=== PATIENT | female | born 1960 | race Caucasian/White ===

== ENCOUNTER 2020-08-27 08:57 | Outpatient (REF) | payer MEDICARE, SELFPAY ==
[2020-08-27 11:22] LABS: MANUAL DIFF FLAG NO
[2020-08-27 11:43] LABS: Basophils Percent Auto 0.8 % (0-2); Eosinophils Absolute Auto 0.1 X10*3/uL (0.0-0.4); Eosinophils Percent Auto 1.7 % (0-4); Hematocrit 43.4 % (37-47); Hemoglobin 13.6 g/dl (12.0-16.0); Imm Gran Abs Auto 0.02 X10*3/uL (0.00-0.03); Imm Gran Pct Auto 0.4 % (0.0-0.4); Lymphocytes Percent Auto 57.7 % (20-40); Mean Corpuscular HGB Conc 31.3 g/dl (31.0-35.0); Mean Corpuscular Hemoglobin 29.2 pg (27.0-33.0); Mean Corpuscular Volume 93.3 fL (80-98); Mean Platelet Volume 10.3 fL (9.4-12.3); Monocytes Absolute Auto 0.7 X10*3/uL (0.1-1.2); Monocytes Percent Auto 13.1 % (2-11); Neutrophils Absolute Auto 1.4 X10*3/uL (2.0-8.3); Neutrophils Percent Auto 26.3 % (45-73); Platelet Count 324 X10*3/uL (160-400); Red Blood Count 4.65 X10*6/uL (4.20-5.50); Red Cell Distribution Width 14.2 % (11.0-16.0); White Blood Count 5.3 X10*3/uL (4.8-10.8)
[2020-08-27 12:08] LABS: TSH reflex Free T4 1.43 mIU/mL (0.32-4.0)
== END 2020-08-27 08:58 | disposition home or self-care (01) ==
LOC: HO.HMGCLDS 08:57
PROVIDERS: PCP Internal Medicine; Visit Provider Internal Medicine
DX: N95.0 Postmenopausal bleeding (principal)
CPT/HCPCS: 36415; 84443; 85025

== ENCOUNTER 2020-08-29 08:29 | Outpatient (REF) | payer MEDICARE, SELFPAY | END 2020-08-29 08:30 | disposition home or self-care (01) | LOC: HO.LAB 08:29 | PROVIDERS: PCP Internal Medicine; Referring Provider Internal Medicine; Visit Provider Obstetrics & Gynecology | DX: N95.0 Postmenopausal bleeding (principal) | CPT/HCPCS: 88305; 99212 ==

== ENCOUNTER → 2020-09-12 11:19 | Outpatient (BNVA) | payer MEDICARE, SELFPAY | PROVIDERS: PCP Internal Medicine; Referring Provider Internal Medicine; Visit Provider Obstetrics & Gynecology | DX: N95.0 Postmenopausal bleeding (principal); Z98.890 Other specified postprocedural states | CPT/HCPCS: Q3014 ==

== ENCOUNTER 2021-06-25 11:54 | Emergency (ER) | payer MEDICARE, SELFPAY ==
--- NOTE | ~2021-06-25 | XR_ITS ---
EXAMINATION: XR KNEE, RIGHT CLINICAL INFORMATION: Injury with pain COMPARISON: November 18, 2018 TECHNIQUE: Four views of the right knee. FINDINGS: There is no evidence of acute fracture or dislocation of the right knee. There is a small right knee effusion. The right knee joint spaces are maintained. There is minor marginal spurring seen about the medial lateral joint space compartments. There is spurring seen at the patellofemoral joint. There is some edema seen about the inferior aspect of the patella tendon. XR/XR knee RT 3V IMPRESSION: Mild degenerative change of the right knee as described. Small right knee effusion. Edema about the inferior aspect of the patella tendon.
[2021-06-25 12:05] VITALS: BP 168/95; PULSE 61; RESP 16; TEMP 36.3; O2SAT 98; BMI 50.0
--- NOTE | 2021-06-25 13:28 | ED.LOWEXIN ---
HPI - Extremity Injury (Lower) General Chief Complaint: Extremity Injury, Lower Stated Complaint: rt knee injury Time Seen by Provider: 06/25/21 13:28 History of Present Illness HPI Narrative: Patient complains of right knee pain after twisting it when she slipped on a wet floor 2 days ago, no other injury, no numbness weakness or tingling no head injury no neck pain no back pain Related Data Home Medications Medication Instructions Recorded Confirmed bupropion HCl 300 mg 24 hr tablet, 300 mg PO DAILY 08/27/20 10/03/20 extended release clonidine HCl 0.1 mg tablet 0 mg PO 08/27/20 10/03/20 escitalopram oxalate 20 mg tablet 20 mg PO DAILY 08/27/20 10/03/20 flu vac [id number] 36mos up(PF) ml IM 10/03/20 10/03/20 Previous Rx's Medication Instructions Recorded cetirizine 10 mg tablet 10 mg PO BEDTIME PRN #30 tab 04/16/21 Allergies Allergy/AdvReac Type Severity Reaction Status Date / Time latex [LATEX] Allergy Mild RASH Verified 09/12/20 11:19 Review of Systems Review of Systems: Positive for right knee pain Negatives are no fever no chills no dizziness no fainting no feeling faint no headache no head injury no loss of consciousness no neck pain no numbness weakness or tingling no back pain no changes to bowel or bladder and no chest pain no shortness of breath Yes all other systems are reviewed and are negative PMFSH Past Medical History Source: obtained from family Medical History (Updated 06/25/21 @ 14:53 by KASANDRA No) Bile salt-induced diarrhea Depression Hypertrophic toenail IBS (irritable bowel syndrome) Keratoconus of both eyes Lactose intolerance Morbid obesity Patellofemoral syndrome of right knee Postmenopausal bleeding Restless leg syndrome Seasonal allergies Tear of lateral meniscus of right knee Surgical History History of laparoscopic cholecystectomy History of tubal ligation Family History Family History Father Hodgkins disease Son No problems noted. Son No problems noted. Daughter No problems noted. Social History Social History Alcohol intake: current Advance Directives: Yes Advance Directives Information Provided: No Advance Directives on File: No Physical Exam Vital Signs: Vital Signs: Last Vital Signs Temp 97.4 F 06/25/21 12:05 Pulse 61 06/25/21 12:05 Resp 16 06/25/21 12:05 BP 168/95 H 06/25/21 12:05 Pulse Ox 98 06/25/21 12:05 Body Mass Index 50.0 General appearance no acute distress Head is normocephalic atraumatic Neck is supple nontender Respiratory no distress The back full range of motion The extremities the right knee is tender with mild swelling the tenderness is below the patella and along the joint line, there is no obvious effusion, patient can do a straight leg lift with no evidence of quadriceps or patellar tendon rupture, there is pain with flexion but the knee does extend to 180 and flexes to about 90 with discomfort, skin is normal there is no calf tenderness or swelling, neurovascular intact distal Other extremities normal Course Course Course Narrative: Right knee x-ray did show some arthritis and a very small effusion Patient can ambulate with a limp comfortably Patient is referred to orthopedist for follow-up and is comfortable and is discharged Discharge Plan Discharge Clinical Impression: Right knee sprain Patient Disposition: Home, Self-Care Additional Instructions: No broken bone seen on x-ray, there was some evidence of arthritis Follow with orthopedist for further evaluation Return to the ER any time any worse condition or any concerns You can use Tylenol or Motrin available [id number] as needed Prescriptions: No Action cetirizine 10 mg tablet 10 mg PO BEDTIME PRN (Reason: for allergies) Qty: 30 RF: 3 Afluria Qd (3yr up)(PF) 60 mcg (15 mcg x 4)/0.5 mL syringe IM RF: 0 clonidine HCl 0.1 mg tablet 0 mg PO RF: 0 bupropion HCl 300 mg tablet extended release 24 hr 300 mg PO DAILY RF: 0 escitalopram oxalate 20 mg tablet 20 mg PO DAILY RF: 0 Referrals: Steve Saldana MD [Physician] - 2 days (Right knee sprain) Interventions: ED Discharge Assessment Last Done: 06/25/21 15:02 Discharge Date/Time: 06/25/21 15:04
== END 2021-06-25 15:04 | disposition home or self-care (01) ==
PROVIDERS: Emergency Provider Emergency Medicine; PCP Internal Medicine
DX: S83.91XA Sprain of unspecified site of right knee, initial encounter (principal); W01.0XXA Fall on same level from slipping, tripping and stumbling without subsequent striking against object, initial encounter; Y93.9 Activity, unspecified; Y92.9 Unspecified place or not applicable; Y99.9 Unspecified external cause status
CPT/HCPCS: 73562; 99283

== ENCOUNTER 2021-08-04 12:53 | Outpatient (REF) | payer MEDICARE, SELFPAY ==
--- NOTE | ~2021-08-04 | MM_ITS ---
EXAMINATION: MM SCREENING DIGITAL BREAST TOMOSYNTHESIS, BILATERAL CLINICAL INFORMATION: Screening. Asymptomatic. The lifetime risk of breast cancer based on the Tyrer-Cuzick Model is 5%. COMPARISON: Mammography: 04/29/2020, 04/26/2018, 03/31/2017 TECHNIQUE: Digital breast tomosynthesis is performed in both the craniocaudal and mediolateral oblique views along with computer-aided detection (CAD). Synthesized 2D images are generated from the tomosynthesis. FINDINGS: There are scattered areas of fibroglandular density (ACR BI-RADS breast composition Category b). The left breast has a 5 mm circumscribed nodule anterior 3:30 o'clock position within 4 cm of the nipple, representing change from prior exams, possibly a cyst. Patient will be recalled for additional targeted ultrasound. The breasts otherwise show no significant mass or architectural abnormality. There are some calcifications in the anterior breasts similar to prior studies, greater on right. Some fine dermal calcifications versus deodorant artifact overlies right axilla. The axillary nodes are unremarkable. Skin contours are smooth. MM/MM tomosynthesis screening BI IMPRESSION: 1. Left: Smooth 5 mm nodule anterior 3:30 o'clock position, possibly a cyst. 2. Right: No mammographic evidence of malignancy. ASSESSMENT: BI-RADS 0: Incomplete - Need Additional Imaging Evaluation RECOMMENDATION: 1. Targeted ultrasound left breast. 2. Radiology department staff will contact the patient for additional imaging. This patient's information was entered into a reminder system with a target due date for their next mammogram.
== END 2021-08-04 12:54 | disposition home or self-care (01) ==
LOC: HO.MAMMO 12:53
PROVIDERS: Visit Provider Internal Medicine
DX: Z12.31 Encounter for screening mammogram for malignant neoplasm of breast (principal)
CPT/HCPCS: 77063; 77067

== ENCOUNTER → 2021-08-18 12:24 | Outpatient (BNVA) | payer MEDICARE, SELFPAY | PROVIDERS: PCP Internal Medicine; Visit Provider Orthopaedic Surgery | DX: M17.11 Unilateral primary osteoarthritis, right knee (principal) | CPT/HCPCS: 20610; 99212; J1100 ==

== ENCOUNTER 2021-09-03 12:17 | Outpatient (REF) | payer MEDICARE, SELFPAY ==
--- NOTE | ~2021-09-03 | US_ITS ---
EXAMINATION: US BREAST LIMITED, LEFT CLINICAL INFORMATION: Density lateral aspect left breast. COMPARISON: 08/04/2021 and 04/29/2020 TECHNIQUE: Ultrasound of the breast is performed with real-time adrian-scale imaging and color Doppler. FINDINGS: About the 3 o'clock position, 4 cm from nipple, of the left breast, there is noted to be an anechoic 4 mm circumscribed cyst without internal vascularity. No suspicious solid mass or region of abnormal distal sound shadowing appreciated. No edema within the soft tissue planes is identified. Results are discussed with the patient at time of visit. US/US breast LT limited IMPRESSION: Left breast density corresponds to a simple cyst. ASSESSMENT: BI-RADS 2: Benign. RECOMMENDATION: Routine annual mammography screening due in 12 months. This patient's information was entered into a reminder system with a target due date for their next mammogram.
== END 2021-09-03 12:18 | disposition home or self-care (01) ==
LOC: HO.MAMMO 12:17
PROVIDERS: Visit Provider Internal Medicine
DX: R92.2 Inconclusive mammogram (principal); N63.25 Unspecified lump in the left breast, overlapping quadrants
CPT/HCPCS: 76642

== ENCOUNTER 2021-09-10 11:46 | Outpatient (REF) | payer MEDICARE, SELFPAY ==
[2021-09-10 13:50] LABS: MANUAL DIFF FLAG NO
[2021-09-10 14:03] LABS: Basophils Absolute Auto 0.1 X10*3/uL (0.0-0.2); Eosinophils Absolute Auto 0.1 X10*3/uL (0.0-0.4); Eosinophils Percent Auto 2.6 % (0-4); Hematocrit 43.5 % (37.0-47.0); Imm Gran Abs Auto 0.01 X10*3/uL (0.00-0.03); Imm Gran Pct Auto 0.2 % (0.0-0.4); Lymphocytes Absolute Auto 2.6 X10*3/uL (1.2-4.9); Lymphocytes Percent Auto 50.7 % (20-40); Mean Corpuscular HGB Conc 32.2 g/dl (31.0-35.0); Mean Corpuscular Hemoglobin 30.4 pg (27.0-33.0); Mean Corpuscular Volume 94.4 fL (80.0-98.0); Mean Platelet Volume 10.6 fL (9.4-12.3); Monocytes Absolute Auto 0.5 X10*3/uL (0.1-1.2); Monocytes Percent Auto 10.1 % (2-11); Neutrophils Absolute Auto 1.8 x10*3/uL (2.0-8.3); Neutrophils Percent Auto 35.4 % (45-73); Platelet Count 304 X10*3/uL (160-400); Red Blood Count 4.61 X10*6/uL (4.20-5.50); Red Cell Distribution Width 13.1 % (11.0-16.0); White Blood Count 5.1 X10*3/uL (4.8-10.8)
[2021-09-10 14:33] LABS: Alanine Aminotransferase 18 U/L (0-31); Anion Gap 11 (12-20); Aspartate Amino Transferase 14 U/L (5-31); Blood Urea Nitrogen 13 mg/dL (9-16); Calcium 9.1 mg/dL (8.4-10.2); Carbon Dioxide 26 mmol/L (22-29); Chloride 107 mmol/L (96-108); Cholesterol 175 mg/dL; Estimated Glomerular Filt Rate > 60; Glucose Fasting 107 mg/dL (60-99); HDL Cholesterol 50 mg/dL; LDL Cholesterol Calculated 102 mg/dl; Potassium 4.4 mmol/L (3.3-5.1); Sodium 140 mmol/L (135-145); Triglycerides 117 mg/dL
[2021-09-10 14:41] LABS: TSH reflex Free T4 0.71 uIU/mL (0.32-4.0)
== END 2021-09-10 11:47 | disposition home or self-care (01) ==
LOC: HO.HMGCLDS 11:46
PROVIDERS: PCP Internal Medicine; Visit Provider Internal Medicine
DX: Z01.84 Encounter for antibody response examination (principal); E66.01 Morbid (severe) obesity due to excess calories; I10 Essential (primary) hypertension
CPT/HCPCS: 36415; 80048; 80061; 82306; 84443; 84450; 84460; 85025; 86787

== ENCOUNTER → 2021-12-03 14:09 | Outpatient (BNVA) | payer MEDICARE, SELFPAY | PROVIDERS: PCP Internal Medicine; Referring Provider Internal Medicine; Visit Provider Internal Medicine | DX: R00.1 Bradycardia, unspecified (principal); I10 Essential (primary) hypertension; E66.01 Morbid (severe) obesity due to excess calories; Z68.42 Body mass index [BMI] 45.0-49.9, adult | CPT/HCPCS: 99202 ==

== ENCOUNTER → 2021-12-25 20:44 | Outpatient (REF) | payer MEDICARE, SELFPAY | LOC: HO.SL 20:44 | PROVIDERS: PCP Internal Medicine; Visit Provider Internal Medicine | DX: G47.10 Hypersomnia, unspecified (principal); R00.1 Bradycardia, unspecified; E66.01 Morbid (severe) obesity due to excess calories | CPT/HCPCS: 95810 ==

== ENCOUNTER → 2021-12-26 06:45 | Outpatient (REF) | payer MEDICARE, SELFPAY ==
--- NOTE | 2021-12-26 06:48 | HM_ITS ---
Conclusion: 1. Patient was monitored for period of 3 days and 4 hours 2. Baseline was normal sinus rhythm with average heart of 64 beats per minute 3. No significant pauses noted but lowest heart rate noted to be 39 beats per minute during sleep hours 4. Very rare PACs and PVCs noted 5. Three short episodes of supraventricular tachycardia longest lasting 14 beats 6. No patient reported events MTDD
== END ==
LOC: HO.CARD 06:45
PROVIDERS: PCP Internal Medicine; Visit Provider Internal Medicine
DX: R00.1 Bradycardia, unspecified (principal)
CPT/HCPCS: 93242

== ENCOUNTER → 2022-02-03 14:10 | Outpatient (BNVA) | payer MEDICARE, OTHER, SELFPAY | PROVIDERS: PCP Internal Medicine; Visit Provider Internal Medicine | DX: G47.33 Obstructive sleep apnea (adult) (pediatric) (principal); G25.81 Restless legs syndrome; E66.01 Morbid (severe) obesity due to excess calories; Z68.42 Body mass index [BMI] 45.0-49.9, adult | CPT/HCPCS: 99202 ==

== ENCOUNTER 2022-02-13 12:39 | Outpatient (REF) | payer MEDICARE, OTHER, SELFPAY ==
[2022-02-13 14:00] LABS: Estimated Average Glucose 111 mg/dL; Hemoglobin A1c % 5.5 %
[2022-02-13 14:11] LABS: Alanine Aminotransferase 16 U/L (0-31); Anion Gap 10 (12-20); Aspartate Amino Transferase 16 U/L (5-31); Blood Urea Nitrogen 14 mg/dL (9-16); Calcium 9.8 mg/dL (8.4-10.2); Carbon Dioxide 29 mmol/L (22-29); Chloride 106 mmol/L (96-108); Cholesterol 192 mg/dL; Estimated Glomerular Filt Rate > 60; Glucose Fasting 97 mg/dL (60-99); HDL Cholesterol 49 mg/dL; LDL Cholesterol Calculated 121 mg/dl; Potassium 4.9 mmol/L (3.3-5.1); Sodium 140 mmol/L (135-145); Triglycerides 110 mg/dL
== END 2022-02-13 12:40 | disposition home or self-care (01) ==
LOC: HO.HMGCLDS 12:39
PROVIDERS: PCP Internal Medicine; Visit Provider Internal Medicine
DX: E55.9 Vitamin D deficiency, unspecified (principal); E66.01 Morbid (severe) obesity due to excess calories; R73.01 Impaired fasting glucose; I10 Essential (primary) hypertension
CPT/HCPCS: 36415; 80048; 80061; 82306; 83036; 84450; 84460

== ENCOUNTER → 2022-02-19 09:45 | Outpatient (BNVA) | payer MEDICARE, OTHER, SELFPAY | PROVIDERS: PCP Internal Medicine; Visit Provider Dietitian, Registered | DX: E66.01 Morbid (severe) obesity due to excess calories (principal); Z68.42 Body mass index [BMI] 45.0-49.9, adult | CPT/HCPCS: 97802 ==

== ENCOUNTER → 2022-03-17 12:54 | Outpatient (BNVA) | payer MEDICARE, OTHER, SELFPAY | PROVIDERS: PCP Internal Medicine; Referring Provider Internal Medicine; Visit Provider Nurse Practitioner Family | DX: R00.1 Bradycardia, unspecified (principal); G47.33 Obstructive sleep apnea (adult) (pediatric); E66.01 Morbid (severe) obesity due to excess calories; Z68.42 Body mass index [BMI] 45.0-49.9, adult; I10 Essential (primary) hypertension | CPT/HCPCS: 99212 ==

== ENCOUNTER → 2022-04-01 11:13 | Outpatient (BNVA) | payer MEDICARE, OTHER, SELFPAY | PROVIDERS: PCP Internal Medicine; Visit Provider Dietitian, Registered | DX: E66.01 Morbid (severe) obesity due to excess calories (principal); Z68.42 Body mass index [BMI] 45.0-49.9, adult | CPT/HCPCS: 97803 ==

== ENCOUNTER 2022-04-14 12:53 | Outpatient (REF) | payer MEDICARE, OTHER, SELFPAY ==
--- NOTE | ~2022-04-14 | CT_ITS ---
EXAMINATION: CT SINUS WITHOUT CONTRAST CLINICAL INFORMATION: Anosmia, sinonasal polyps. COMPARISON: None. TECHNIQUE: Axial 2 mm thin and reformatted 2 mm thin sagittal and coronal images of sinuses were obtained. This CT examination was performed using dose optimization techniques as appropriate, variously including the following: *Automated exposure control *Adjustment of mA and/or kV according to patient size (this includes techniques or standardized protocols for targeted exams where dose is matched to indication/reason for exam; i.e. extremities or head) *Use of iterative reconstruction technique DLP: 96 mGy-cm. FINDINGS: FRONTAL SINUSES AND DRAINAGE PATHWAYS: There is a small polyp or retention cyst right frontal sinus. The rest of the paranasal sinuses are well aerated. MAXILLARY SINUSES AND DRAINAGE PATHWAYS: Normal. The infundibula are patent. ETHMOID SINUSES: Normal. The ethmoid roofs are symmetric, with olfactory fossa depth of 0.7 on the right and 0.6 on the left. SPHENOID SINUSES AND DRAINAGE PATHWAYS: Normal. The sphenoid ostia are patent. The carotid canals are covered by bone. NASAL CAVITY/NASOPHARYNX: The nasal cavity is clear. There is mild nasal septal deviation/spurring to the right. There is nikki bullosa of the left middle turbinate. ADDITIONAL RELEVANT FINDINGS: No periapical disease is seen. The TMJs articulate normally. The orbits and skull base soft tissues are unremarkable. The middle ear cavities and mastoid air cells are clear. Limited evaluation demonstrates no acute intracranial findings. CT/CT sinus wo con IMPRESSION: Small polyp or retention cyst right maxillary sinus. The rest of the paranasal sinuses are clear. The drainage pathways are widely patent. Mild deviation of nasal septum to the right with small bony spur and nikki bullosa left middle turbinate.
== END 2022-04-14 12:54 | disposition home or self-care (01) ==
LOC: HO.CT 12:53
PROVIDERS: Visit Provider Otolaryngology
DX: R43.0 Anosmia (principal); J33.0 Polyp of nasal cavity
CPT/HCPCS: 70486

== ENCOUNTER → 2022-05-07 14:40 | Outpatient (BNVA) | payer MEDICARE, OTHER, SELFPAY | PROVIDERS: PCP Internal Medicine; Visit Provider Internal Medicine | DX: G47.33 Obstructive sleep apnea (adult) (pediatric) (principal); E66.01 Morbid (severe) obesity due to excess calories; Z68.42 Body mass index [BMI] 45.0-49.9, adult | CPT/HCPCS: 99212 ==

== ENCOUNTER → 2022-06-03 10:26 | Outpatient (BNVA) | payer MEDICARE, OTHER, SELFPAY | PROVIDERS: PCP Internal Medicine; Visit Provider Dietitian, Registered | DX: E66.01 Morbid (severe) obesity due to excess calories (principal); Z68.41 Body mass index [BMI] 40.0-44.9, adult; Z71.3 Dietary counseling and surveillance | CPT/HCPCS: 97803 ==

== ENCOUNTER → 2022-07-22 12:22 | Outpatient (BNVA) | payer MEDICARE, OTHER, SELFPAY | PROVIDERS: PCP Internal Medicine; Referring Provider Internal Medicine; Visit Provider Internal Medicine | DX: R00.1 Bradycardia, unspecified (principal); I10 Essential (primary) hypertension; G47.33 Obstructive sleep apnea (adult) (pediatric); E66.01 Morbid (severe) obesity due to excess calories; Z68.41 Body mass index [BMI] 40.0-44.9, adult | CPT/HCPCS: 99212 ==

== ENCOUNTER → 2022-07-27 15:52 | Outpatient (REF) | payer MEDICARE, OTHER, SELFPAY ==
--- NOTE | 2022-07-27 15:57 | CA_ITS ---
Transthoracic Echocardiogram Patient (Last, First, Middle): Linda Fernandez M Gender: Female Date of : 1960 Age: 62 Procedure Date: 07/27/2022 Procedure Type: Transthoracic Echocardiogram Location: OP Height: 152.4 cm Weight: 98.43 kg BSA: 1.93 m2 Heart Rate: 51 bpm BP: 140 / 80 mmHg Placement Manager: LISA Sandoval MD: Jose Walker MD [employer] Technician: Kash Strauss MD Symptoms: G47.33 - Obstructive sleep apnea (adult) (pediatric) Study Quality: Adequate ECG Rhythm: Bradycardia Conclusions: - Normal study Findings Left Ventricle Normal left ventricular size, thickness, and systolic function. The visually estimated ejection fraction is between 55-60%. Spectral Doppler is indicative of a normal filling pattern. Right Ventricle Normal right ventricular cavity size and systolic function. Atria Both atria are normal in size. There is no evidence of interatrial shunt. Aortic Valve Normal aortic valve structure and function. There is no aortic valve stenosis. There is no aortic valve regurgitation. Mitral Valve Normal mitral valve structure and function. There is trace mitral valve regurgitation. There is no mitral valve stenosis. Pulmonic Valve The pulmonic valve is likely normal. Tricuspid Valve Normal tricuspid valve structure. There is trace tricuspid valve regurgitation. The right ventricular systolic pressure is normal. Normal right atrial pressure. There is no evidence of pulmonary hypertension. Great Vessels All visible segments of the aorta are normal in size. The pulmonary artery was not well visualized. Venous The inferior vena cava is normal in size and collapses greater than 50% with inspiration. Pericardium/Pleural There is no evidence of pericardial effusion. Prior Study Comparison No prior study available for comparison. Measurements 2D Linear Measurements IVSd: 0.95 0.6-0.9/0.6-1.0 cm LVIDd: 4.58 3.9-5.3/4.2-5.9 cm LVIDd Index: 2.37 2.4-3.2/2.2-3.1 cm/m2 LVIDs: 3.02 2.0-3.6 cm LVPWd: 0.99 0.7-1.1 cm LA Diam: 3.70 2.7-3.8/3.0-4.0 cm LAIDs Index: 1.92 1.5-2.3 cm/m2 LV Mass: 188.34 67-162/88-224 g LV Mass Index: 97.59 43-95/49-115 g/m2 LVOT Diam: 2.00 3.0+(-)1.3 cm 2D Systolic Function EF 4C: 57.20 >55% EF 2C: 53.20 >55% EF BiP: 56.80 >55% Mitral Valve MV Pk E: 0.88 MV PK A: 0.70 MV Decel Time: 198.00 E/A: 1.30 E'Lateral: 10.00 E'Medial: 8.27 E/E' Med: 10.70 E/E' Lat: 8.80 PHT: 58.00 MVA PHT: 3.79 Decel [place]: 4.45 Aortic Valve AoV Pk Brian: 1.20 AoV Mn Brian: 0.82 AoV VTI: 0.28 AoV Pk Grad: 6.00 Aov Mn Grad: 3.00 GEMINI Cont.VTI: 2.98 LVOT LVOT Pk Brian: 1.23 LVOT Mn Brian: 0.74 LVOT VTI: 0.27 LVOT Pk Grad: 6.00 LVOT Mn Grad: 3.00 LVOT Diam: 2.00 LVOT Area: 3.14 Diastolic Function MV Pk E: 0.88 MV Pk A: 0.70 E/A: 1.30 E'Medial: 8.27 E/E' Med: 10.70 E' Laterial: 10.00 E/E' Lat: 8.80 Right Ventricle TAPSE (mm): 22.60 TVS' Brian: 12.20 Tricuspid Valve TR Pk Brian: 1.84 TR Pk Grad: 14.00 RA Press: 3.00 RVSP: 17.00 Great Vessels Aorta Sinus of Valsalva: 3.40 2.0-3.5 cm Ao Asc: 2.90 2.1-3.4 cm Pulmonary Valve PV Pk Brian: 1.06 Peak PV Grad: 4.00 Updated in Other Vendor System with Status of Final Kash Strauss MD electronically signed on 07/27/2022 6:39:26 PM with status of Final
== END ==
LOC: HO.CARD 15:52
PROVIDERS: PCP Internal Medicine; Visit Provider Internal Medicine
DX: R00.1 Bradycardia, unspecified (principal); I10 Essential (primary) hypertension; E66.01 Morbid (severe) obesity due to excess calories; Z68.41 Body mass index [BMI] 40.0-44.9, adult; G47.33 Obstructive sleep apnea (adult) (pediatric)
CPT/HCPCS: 93306

== ENCOUNTER → 2022-08-06 10:55 | Outpatient (BNVA) | payer MEDICARE, OTHER, SELFPAY | PROVIDERS: PCP Internal Medicine; Visit Provider Dietitian, Registered | DX: E66.01 Morbid (severe) obesity due to excess calories (principal); Z68.41 Body mass index [BMI] 40.0-44.9, adult | CPT/HCPCS: 97802 ==

== ENCOUNTER → 2022-08-10 15:39 | Outpatient (BNVA) | payer MEDICARE, OTHER, SELFPAY | PROVIDERS: PCP Internal Medicine; Visit Provider Internal Medicine | DX: G47.33 Obstructive sleep apnea (adult) (pediatric) (principal); G25.81 Restless legs syndrome; E66.01 Morbid (severe) obesity due to excess calories; Z68.41 Body mass index [BMI] 40.0-44.9, adult; Z99.89 Dependence on other enabling machines and devices | CPT/HCPCS: 99212 ==

== ENCOUNTER 2022-10-28 13:11 | Outpatient (REF) | payer MEDICARE, OTHER, SELFPAY ==
--- NOTE | ~2022-10-28 | MM_ITS ---
EXAMINATION: MM SCREENING DIGITAL BREAST TOMOSYNTHESIS, BILATERAL CLINICAL INFORMATION: Screening. Asymptomatic. The lifetime risk of breast cancer based on the Tyrer-Cuzick Model is 5%. COMPARISON: Mammography: 08/04/2021, 04/29/2020, 04/26/2018; left breast ultrasound 09/03/2021 TECHNIQUE: Digital breast tomosynthesis is performed in both the craniocaudal and mediolateral oblique views along with computer-aided detection (CAD). Synthesized 2D images are generated from the tomosynthesis. FINDINGS: There are scattered areas of fibroglandular density (ACR BI-RADS breast composition Category b). There are no significant masses, abnormal calcifications, or other abnormalities. The known cyst anterior lower outer left breast is slightly increased in size, currently approximately 6 mm. Scattered regional calcifications anterior breast are stable. The axilla are unremarkable. No significant changes. MM/MM tomosynthesis screening BI IMPRESSION: No mammographic evidence of malignancy. ASSESSMENT: BI-RADS 2: Benign RECOMMENDATION: Routine annual mammography screening. This patient's information was entered into a reminder system with a target due date for their next mammogram.
== END 2022-10-28 13:12 | disposition home or self-care (01) ==
LOC: HO.MAMMO 13:11
PROVIDERS: PCP Internal Medicine; Visit Provider Internal Medicine
DX: Z12.31 Encounter for screening mammogram for malignant neoplasm of breast (principal)
CPT/HCPCS: 77063; 77067

== ENCOUNTER → 2022-11-04 14:59 | Outpatient (BNVA) | payer MEDICARE, OTHER, SELFPAY | PROVIDERS: PCP Internal Medicine; Visit Provider Internal Medicine | DX: G47.33 Obstructive sleep apnea (adult) (pediatric) (principal); E66.01 Morbid (severe) obesity due to excess calories; Z68.41 Body mass index [BMI] 40.0-44.9, adult; G25.81 Restless legs syndrome | CPT/HCPCS: 99212 ==

== ENCOUNTER → 2022-11-23 10:25 | Outpatient (BNVA) | payer MEDICARE, OTHER, SELFPAY | PROVIDERS: PCP Internal Medicine; Visit Provider Dietitian, Registered | DX: E66.01 Morbid (severe) obesity due to excess calories (principal); Z68.41 Body mass index [BMI] 40.0-44.9, adult | CPT/HCPCS: 97803 ==

== ENCOUNTER 2023-04-08 07:26 | Outpatient (REF) | payer MEDICARE, OTHER, SELFPAY ==
--- NOTE | ~2023-04-08 | XR_ITS ---
EXAMINATION: XR KNEE AP STANDING XR KNEE, RIGHT CLINICAL INFORMATION: Knee pain. COMPARISON: None available. TECHNIQUE: AP bilateral standing view of the knees was obtained. Three views of the right knee. FINDINGS: Examination demonstrates mild tricompartmental osteoarthritis of the right knee, most notably involving the patellofemoral and medial compartments, with joint space narrowing, sclerosis, and mild osteophyte formation. On the limited frontal view of the left knee, findings appear similar. No significant effusion is seen. No fracture is appreciated. No lytic or sclerotic bony lesion is identified. Soft tissues appear unremarkable. XR/XR knee standing BI IMPRESSION: Mild tricompartmental osteoarthritis of the right knee and probably the left knee, although only a frontal view of the left knee is submitted.
--- NOTE | ~2023-04-08 | XR_ITS ---
EXAMINATION: XR KNEE AP STANDING XR KNEE, RIGHT CLINICAL INFORMATION: Knee pain. COMPARISON: None available. TECHNIQUE: AP bilateral standing view of the knees was obtained. Three views of the right knee. FINDINGS: Examination demonstrates mild tricompartmental osteoarthritis of the right knee, most notably involving the patellofemoral and medial compartments, with joint space narrowing, sclerosis, and mild osteophyte formation. On the limited frontal view of the left knee, findings appear similar. No significant effusion is seen. No fracture is appreciated. No lytic or sclerotic bony lesion is identified. Soft tissues appear unremarkable. XR/XR knee RT 2V IMPRESSION: Mild tricompartmental osteoarthritis of the right knee and probably the left knee, although only a frontal view of the left knee is submitted.
== END 2023-04-08 07:27 | disposition home or self-care (01) ==
LOC: HO.HOSX 07:26
PROVIDERS: Visit Provider Orthopaedic Surgery
DX: M17.11 Unilateral primary osteoarthritis, right knee (principal); E66.01 Morbid (severe) obesity due to excess calories; Z68.41 Body mass index [BMI] 40.0-44.9, adult
CPT/HCPCS: 20610; 73560; 73565; 99212; J1100

== ENCOUNTER 2023-06-21 15:04 | Outpatient (AMB) | payer MEDICARE, OTHER, SELFPAY ==
[2023-06-21 15:13] VITALS: BP 130/80; PULSE 73; O2SAT 96; BMI 42.9
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
== END 2023-06-21 15:37 | disposition home or self-care (01) ==
PROVIDERS: PCP Internal Medicine; Visit Provider Internal Medicine
DX: E66.01 Morbid (severe) obesity due to excess calories (principal); Z68.42 Body mass index [BMI] 45.0-49.9, adult; G47.33 Obstructive sleep apnea (adult) (pediatric); G25.81 Restless legs syndrome
CPT/HCPCS: 99213

== ENCOUNTER → 2023-06-21 15:04 | Outpatient (BNVA) | payer MEDICARE, OTHER, SELFPAY | PROVIDERS: PCP Internal Medicine; Visit Provider Internal Medicine | DX: G47.33 Obstructive sleep apnea (adult) (pediatric) (principal); G25.81 Restless legs syndrome; E66.01 Morbid (severe) obesity due to excess calories; Z68.42 Body mass index [BMI] 45.0-49.9, adult | CPT/HCPCS: 99212 ==

== ENCOUNTER 2023-07-14 09:34 | Outpatient (AMB) | payer MEDICARE, OTHER, SELFPAY ==
--- NOTE | 2023-07-14 09:38 | A.OFFVIS_ITS ---
Intake Vital Signs 07/14/23 09:44 Height 5 ft 1 in Weight 227 lb BMI 42.9 Intake Visit Reasons: new prob- B/L hand/ finger pain Intake Note: Linda is a 62 year old right hand dominant female who presents today for a evaluation for her bilateral hand pain. No hx of treatment. Patient reports both of her thumbs locking every day. She states having pain and a tingling sensation on the base of both thumbs. Allergies latex [LATEX] Allergy (Mild, Verified 07/14/23 09:43) RASH Medication List - Last Reconciled 07/14/23 by Crista Vila MD bupropion HCl 300 mg PO DAILY cetirizine 10 mg PO BEDTIME PRN clonidine HCl 0.1 mg PO BEDTIME escitalopram oxalate 20 mg PO DAILY ropinirole 1 mg (2 x 0.5 mg) PO BEDTIME HPI HPI Comments History of Present Illness Details Patient self referred for hand pain on her thumbs. She says she thinks she has arthritis in her thumbs. It locks, pointing on base of thumb, bilateral. Can't hold things or drops things. Reports night time numbness and even during, on base of thumb, but denies numbness on other finger tips. Feels coldness on other fingers. Reports swelling. No associated with neck pain. Treatment done so far: NSAIDs - none yet Tried braces for CTS a while back. She thinks maybe she had an EMG. She mentions that in April, she possibly pulled right arm. Complaining of right shoulder pain and elbow pain. [facility] Medical History (Updated 07/14/23 @ 09:59 by Crista Vila MD) Carpal tunnel syndrome on both sides Restless legs syndrome CHAZ (obstructive sleep apnea) Sinus bradycardia Intermittent lightheadedness Vitamin D deficiency Essential hypertension Hypertrophic toenail Lactose intolerance Seasonal allergies Postmenopausal bleeding Tear of lateral meniscus of right knee Patellofemoral syndrome of right knee Morbid obesity IBS (irritable bowel syndrome) Bile salt-induced diarrhea Restless leg syndrome Depression Keratoconus of both eyes Surgical History History of tubal ligation History of laparoscopic cholecystectomy Family History Father Hodgkins disease Son No problems noted. Son No problems noted. Daughter No problems noted. Other Mental health disorder Social History Housing: House Alcohol intake: current Alcohol intake frequency: holidays/special occasions only Patient Tobacco Use Status: Never used Tobacco e-Cigarette/Vaping Use: Never Used Current occupational status: retired Cognitive needs: No Hearing needs: No Vision needs: No Review of Systems Const All systems reviewed & are unremarkable except as noted in HPI and below Physical Exam Vital Signs: BMI result Body Mass Index 42.9 Constitutional: Patient appears to be in no acute distress, well nourished and well developed. MSK: Inspection reveals appropriate head and neck positioning. Tenderness right upper trapezius. Nontender subacromial area. Cervical ROM was full. Spurling's sign negative. Full right shoulder range of motion but with pain. Hawkin's test is positive on right. Deferred empty can sign because of pain. No joint effusion noted. No deformity noted. No intrinsic hand weakness noted. No atrophy noted. Evangelist test negative bilateral. Tender bilateral CMC joints. Carpal compression test positive bilateral. Tinel sign negative. Tenderness on right lateral epicondyle and along the extensor common tendons. Strength is 5/5 in all muscle groups tested. No increased tone noted. Neurological: Neurologic examination of the upper and lower extremities was nonfocal with intact sensation, muscle stretch reflexes and without focal motor deficits . Kelly?s negative bilaterally. Results Reviewed Results Reviewed: I independently reviewed the results of the following: [ ] I reviewed records from the following: Orthopedic Assessment & Plan Assessment & Plan (1) Carpal tunnel syndrome on both sides: Code(s): G56.03 - Carpal tunnel syndrome, bilateral upper limbs (2) CMC arthritis: Code(s): M19.049 - Primary osteoarthritis, unspecified hand (3) Tennis elbow: Code(s): M77.10 - Lateral epicondylitis, unspecified elbow Qualifiers: Laterality: right Qualified Code(s): M77.11 - Lateral epicondylitis, right elbow (4) DJD of shoulder: Code(s): M19.019 - Primary osteoarthritis, unspecified shoulder Qualifiers: Osteoarthritis type: primary Laterality: right Qualified Code(s): M19.011 - Primary osteoarthritis, right shoulder Plan Patient is self-referred for hand/thumb pain. Exam suggestive of CMC arthritis. Lower suspicion for de Quervain tenosynovitis. Possible history of Carpal Tunnel Syndrome. We will send her for hand/wrist x-rays today. We will also send her for EMG. To wear wrist splints at night. Also complained of right shoulder pain. Was sent for a right shoulder x-ray today. Possible DJD. On exam, she has tenderness over lateral epicondyle, suggestive of tennis elbow. We will start her on counterforce brace to wear during the day. Assessment and plan discussed with patient, and patient was agreeable. All questions were answered thoroughly. Crista Vila MD, CARMINA Board Certified, [place] Board of Physical Medicine and Rehabilitation (ABPMR) Board Certified, [place] Board of Electrodiagnostic Medicine (ABEM) Orders: Orders NE electromyogram (EMG) Today G56.03 - Carpal tunnel syndrome, bilateral upper limbs NE nerve conduction velocity Today G56.03 - Carpal tunnel syndrome, bilateral upper limbs XR hand wrist RT Today M19.049 - Primary osteoarthritis, unspecified hand XR hand wrist LT Today M19.049 - Primary osteoarthritis, unspecified hand XR shoulder RT min 2V Today M19.019 - Primary osteoarthritis, unspecified shoulder Coding Level of Care Code New Pt Level 4 (36890) Diagnoses Carpal tunnel syndrome on both sides G56.03 CMC arthritis M19.049 Lateral epicondylitis of right elbow M77.11 Laterality: right Primary osteoarthritis of right shoulder M19.011 Osteoarthritis type: primary Laterality: right
[2023-07-14 09:44] VITALS: BMI 42.9
== END 2023-07-14 10:50 | disposition home or self-care (01) ==
PROVIDERS: PCP Internal Medicine; Visit Provider Physical Medicine & Rehabilitation
DX: G56.03 Carpal tunnel syndrome, bilateral upper limbs (principal); M19.041 Primary osteoarthritis, right hand; M77.11 Lateral epicondylitis, right elbow; M19.011 Primary osteoarthritis, right shoulder; M19.042 Primary osteoarthritis, left hand
CPT/HCPCS: 99204

== ENCOUNTER 2023-07-14 09:34 | Outpatient (REF) | payer MEDICARE, OTHER, SELFPAY ==
--- NOTE | ~2023-07-14 | XR_ITS ---
EXAMINATION: XR HAND/WRIST, RIGHT XR HAND/WRIST, LEFT CLINICAL INFORMATION: Osteoarthritis. COMPARISON: Right hand radiographs dated 05/03/2019 and report from bilateral hand radiographs dated 10/11/2012. TECHNIQUE: PA, oblique, and lateral views of the right and left hand/wrist. FINDINGS: RIGHT HAND/WRIST: Mild joint space narrowing with small marginal osteophytes at the 1st carpometacarpal joint, similar when compared to the prior examination. Mild joint space narrowing with tiny marginal osteophytic the 1st metacarpal phalangeal joint, slightly progressed. Mild joint space narrowing with tiny marginal osteophytes at the 4th proximal interphalangeal joint, slightly progressed. No acute fracture or dislocation. Normal carpal alignment. No periarticular erosion or osteopenia. No abnormal soft tissue calcification. LEFT HAND/WRIST: Moderate joint space narrowing with small marginal osteophytes at the 1st carpometacarpal joint. Radial subluxation of the 1st metacarpal. No additional joint space narrowing or marginal osteophytes. No acute fracture or dislocation. No periarticular erosion or osteopenia. No abnormal soft tissue calcification. XR/XR hand wrist RT IMPRESSION: 1. Right hand/wrist: [id number] degenerative arthritis at the 1st carpometacarpal joint, slightly progressed. Mild degenerative arthritis at the 1st metacarpophalangeal joint and 4th proximal interphalangeal joint, slightly progressed. 2. Left hand/wrist: Moderate degenerative arthritis at the 1st carpometacarpal joint with mild radial subluxation of the 1st metacarpal, slightly progressed. No additional degenerative arthritis or periarticular erosion.
--- NOTE | ~2023-07-14 | XR_ITS ---
EXAMINATION: XR SHOULDER, RIGHT CLINICAL INFORMATION: Right shoulder pain. Osteoarthritis. COMPARISON: None available. TECHNIQUE: AP and scapular Y views of the right shoulder. FINDINGS: No acute fracture or dislocation. Small acromioclavicular marginal osteophytes. No glenohumeral joint space narrowing or marginal osteophytes. No osseous erosion. No abnormal soft tissue calcification. XR/XR shoulder RT min 2V IMPRESSION: Mild acromioclavicular osteoarthritis.
--- NOTE | ~2023-07-14 | XR_ITS ---
EXAMINATION: XR HAND/WRIST, RIGHT XR HAND/WRIST, LEFT CLINICAL INFORMATION: Osteoarthritis. COMPARISON: Right hand radiographs dated 05/03/2019 and report from bilateral hand radiographs dated 10/11/2012. TECHNIQUE: PA, oblique, and lateral views of the right and left hand/wrist. FINDINGS: RIGHT HAND/WRIST: Mild joint space narrowing with small marginal osteophytes at the 1st carpometacarpal joint, similar when compared to the prior examination. Mild joint space narrowing with tiny marginal osteophytic the 1st metacarpal phalangeal joint, slightly progressed. Mild joint space narrowing with tiny marginal osteophytes at the 4th proximal interphalangeal joint, slightly progressed. No acute fracture or dislocation. Normal carpal alignment. No periarticular erosion or osteopenia. No abnormal soft tissue calcification. LEFT HAND/WRIST: Moderate joint space narrowing with small marginal osteophytes at the 1st carpometacarpal joint. Radial subluxation of the 1st metacarpal. No additional joint space narrowing or marginal osteophytes. No acute fracture or dislocation. No periarticular erosion or osteopenia. No abnormal soft tissue calcification. XR/XR hand wrist LT IMPRESSION: 1. Right hand/wrist: [id number] degenerative arthritis at the 1st carpometacarpal joint, slightly progressed. Mild degenerative arthritis at the 1st metacarpophalangeal joint and 4th proximal interphalangeal joint, slightly progressed. 2. Left hand/wrist: Moderate degenerative arthritis at the 1st carpometacarpal joint with mild radial subluxation of the 1st metacarpal, slightly progressed. No additional degenerative arthritis or periarticular erosion.
== END 2023-07-14 09:35 | disposition home or self-care (01) ==
LOC: HO.HOSX 09:34
PROVIDERS: PCP Internal Medicine; Visit Provider Physical Medicine & Rehabilitation
DX: G56.03 Carpal tunnel syndrome, bilateral upper limbs (principal); M77.10 Lateral epicondylitis, unspecified elbow; M19.011 Primary osteoarthritis, right shoulder
CPT/HCPCS: 73030; 73110; 73130

== ENCOUNTER 2023-07-19 10:50 | Outpatient (AMB) | payer MEDICARE, OTHER, SELFPAY ==
--- NOTE | 2023-07-19 10:53 | A.OFFVIS_ITS ---
Intake Vital Signs 07/19/23 10:59 Height 5 ft 1 in Weight 227 lb BMI 42.9 Intake Visit Reasons: OV - Rt Patellofemoral Pain Intake Note: Linda is a 63 year old female who presents today for a follow up of her right knee valgus OA, at he last visit on 04/08/23 she received an injection. This injection lasted about 2 weeks. States injection lasted about 2 weeks. Currently she is concern that her knee is giving out and feels weak when she gets up from a sitting postion. Allergies latex [LATEX] Allergy (Mild, Verified 07/19/23 10:57) RASH HPI OV - Rt Patellofemoral Pain HPI Details Linda is a 63 year old woman with right knee OA. She was last seen, and injected, on 04/08/23, and has been working on weight management. She has pain with daily activity, worse with using stairs or long walks. she says her last injection gave her relief for ~2 weeks and she now feels increased pain and weakness when standing from a seated position. Her pain is localized primarily to the front of her knee. She feels her knee gives way on her occasionally. She has been limited in her ability to exercise due to feeling unsteady and she is frustrated by this. She says even swimming is difficult for her, which it wasnt before She remains active at home as she cares for her elderly mother, and has been helping an elderly tenant move out of her house soon, which involves frequent and repetitive use of stairs. [facility] Medical History (Updated 07/19/23 @ 11:05 by Edgar Solitario) Carpal tunnel syndrome on both sides Restless legs syndrome CHAZ (obstructive sleep apnea) Sinus bradycardia Intermittent lightheadedness Vitamin D deficiency Essential hypertension Hypertrophic toenail Lactose intolerance Seasonal allergies Postmenopausal bleeding Tear of lateral meniscus of right knee Patellofemoral syndrome of right knee Morbid obesity IBS (irritable bowel syndrome) Bile salt-induced diarrhea Restless leg syndrome Depression Keratoconus of both eyes Surgical History History of tubal ligation History of laparoscopic cholecystectomy Family History Father Hodgkins disease Son No problems noted. Son No problems noted. Daughter No problems noted. Other Mental health disorder Social History Housing: House Alcohol intake: current Alcohol intake frequency: holidays/special occasions only Patient Tobacco Use Status: Never used Tobacco e-Cigarette/Vaping Use: Never Used Current occupational status: retired Cognitive needs: No Hearing needs: No Vision needs: No Review of Systems Const All systems reviewed & are unremarkable except as noted in HPI and below Physical Exam Vital Signs: BMI result Body Mass Index 42.9 Const General: no acute distress, alert and awake Orientation/consciousness: patient oriented x3 HEENT Head: Yes normocephalic and Yes atraumatic Eyes EOM: EOMs intact bilaterally Resp Effort & Inspection: normal respiratory effort and able to speak in complete sentences Cardio Jugular venous distension: no JVD Skin General skin exam: turgor normal Rashes: no rashes Neuro General: patient oriented x3 Extrem Other: Joint line tenderness and trace effusion Psych Appearance: grossly normal Affect: normal affect Attitude: cooperative Assessment & Plan Assessment & Plan (1) Arthritis of right knee: Code(s): M17.11 - Unilateral primary osteoarthritis, right knee Plan: This is a 63 year old woman with right knee valgus OA, with pain and effusion. She has pain with daily activity, worse with prolonged ambulation or using stairs. She feels limited in her ADLs and her ability to continue exercising due to feeling unsteady. She had some relief from injections in the past, but her m ost recent lasted only ~2 weeks. I discussed her diagnosis and treatment options, including a possible TKA in the future. I recommend viscosupplementation, NSAIDs, RICE, and she continue to remain active and work on weight management. She will follow up for her viscosupplementation injection. (2) Morbid obesity with BMI of 40.0-44.9, adult: Comment: BMI hx 01/2022 at 45.5, 03/2022 at 43.7, 05/2022 41.5, 07/2022 at 41.4, 10/2022 at 41.7 Code(s): E66.01 - Morbid (severe) obesity due to excess calories; Z68.41 - Body mass index [BMI] 40.0-44.9, adult Plan: Continue weight loss, current BMI 42.9 (3) Knee effusion, right: Code(s): M25.461 - Effusion, right knee Plan Scribed for Steve Saldana MD by Edgar Solitario, biomedical field service engineer, on 07/19/23 at 11:05 AM, EST. Coding Level of Care Code Est Pt Level 3 (64225) Diagnoses Arthritis of right knee M17.11 Morbid obesity with BMI of 40.0-44.9, adult E66.01; Z68.41 Knee effusion, right M25.461
[2023-07-19 10:59] VITALS: BMI 42.9
== END 2023-07-19 11:09 | disposition home or self-care (01) ==
PROVIDERS: PCP Internal Medicine; Visit Provider Orthopaedic Surgery
DX: M17.11 Unilateral primary osteoarthritis, right knee (principal); M25.461 Effusion, right knee
CPT/HCPCS: 99213

== ENCOUNTER → 2023-07-19 10:50 | Outpatient (BNVA) | payer MEDICARE, OTHER, SELFPAY | PROVIDERS: PCP Internal Medicine; Visit Provider Orthopaedic Surgery | DX: M17.11 Unilateral primary osteoarthritis, right knee (principal); M25.461 Effusion, right knee; E66.01 Morbid (severe) obesity due to excess calories; Z68.41 Body mass index [BMI] 40.0-44.9, adult | CPT/HCPCS: 99212 ==

== ENCOUNTER 2023-07-30 10:57 | Outpatient (AMB) | payer MEDICARE, OTHER, SELFPAY ==
--- NOTE | 2023-07-30 10:58 | MHC.OFFVIS ---
Intake Intake Visit Reasons: NewProb- right shoulder pain Intake Note: Linda is a 63 year old right hand dominant female who presents today for a evaluation for her right shoulder pain. No hx of injury. No hx of previous treatment. She states that her pain started about 2-3 months ago and it is ongoing pain. ROM is limited. Allergies latex [LATEX] Allergy (Mild, Verified 07/30/23 11:05) RASH HPI NewProb- right shoulder pain HPI Details 63-year-old right hand dominant female who presents in the office today, as a new patient, for an evaluation of right shoulder pain. The patient does not recall any injury to the shoulder. She denies a history of prior treatment. She claims her pain started about 2-3 months ago, in 04/2023-05/2023. She reports the pain has been ongoing and limiting her ROM. [facility] Medical History (Updated 07/30/23 @ 11:45 by Lara Don) Carpal tunnel syndrome on both sides Restless legs syndrome CHAZ (obstructive sleep apnea) Sinus bradycardia Intermittent lightheadedness Vitamin D deficiency Essential hypertension Hypertrophic toenail Lactose intolerance Seasonal allergies Postmenopausal bleeding Tear of lateral meniscus of right knee Patellofemoral syndrome of right knee Morbid obesity IBS (irritable bowel syndrome) Bile salt-induced diarrhea Restless leg syndrome Depression Keratoconus of both eyes Surgical History History of tubal ligation History of laparoscopic cholecystectomy Family History Father Hodgkins disease Son No problems noted. Son No problems noted. Daughter No problems noted. Other Mental health disorder Social History Housing: House Alcohol intake: current Alcohol intake frequency: holidays/special occasions only Patient Tobacco Use Status: Never used Tobacco e-Cigarette/Vaping Use: Never Used Current occupational status: retired Cognitive needs: No Hearing needs: No Vision needs: No Review of Systems Const All systems reviewed & are unremarkable except as noted in HPI and below Physical Exam Const General: cooperative and no acute distress Orientation/consciousness: patient oriented x3 Resp Effort & Inspection: normal respiratory effort and able to speak in complete sentences Cardio Peripheral pulses: Peripheral pulses 2+ throughout Skin General skin exam: no rashes or lesions noted Neuro General: patient oriented x3 Extrem Other: Right shoulder: Forward flexion and abduction to 90 degrees. External rotation to 45 degrees. Able to reach S1. Pain with cross-body reach. Unable to assess empty can or drop arm due to patient ROM restricitions and pain. NVI. Office Procedures Joint Injection/Drain Joint Injection/Drain Primary Site: right shoulder Prep: site was prepped using aseptic technique, ethochloride spray was applied and injection warnings given Injected: 80 mg of, DepoMedrol, with 8 mL of (2% plain lido ) and in the subcromial space Approach Used: posterolateral Procedure: The patient tolerated the procedure well, but had some pain with the injection and there was some relief with the local anesthesia Coding 47416 - Large joint Procedure code (CPT) selection complete Results Reviewed Results Reviewed: 07/30/23 11:32 Lidocaine HCl 2 % MPF [Xylocaine 2 % MPF] 5 ml .ROUTE .STK-MED ONE methylPREDNISolone acetate [DEPO-MedroL] 80 mg .ROUTE .STK-MED ONE Assessment & Plan Assessment & Plan (1) Painful arc syndrome of right shoulder: Code(s): M75.101 - Unspecified rotator cuff tear or rupture of right shoulder, not specified as traumatic Plan Ms. Fernandez is a 63-year-old right hand dominant female who presents in the office today, as a new patient, for an evaluation of right shoulder pain. The patient does not recall any injury to the shoulder. She denies a history of prior treatment. She claims her pain started about 2-3 months ago, in 04/2023-05/2023. She reports the pain has been ongoing and limiting her ROM. The patient was offered a cortisone injection in the right shoulder with 80 mg of DepoMedrol. The patient was explained the risk, benefits, and alternatives to receiving this injection. After receiving consent for the injection, the patient had the procedure done while in office today. The patient tolerated the procedure well with no complications. The patient will be referred to physical therapy for work on ROM and strengthening of the right shoulder. Follow up will be 6 weeks, or sooner if needed. X-rays of the right shoulder, obtained 07/14/2023, revealed: Mild arthritic changes. Orders: Orders PT Evaluation and Treatment Today M19.011 - Primary osteoarthritis, right shoulder Patient Instructions: Scribed for Andreea Wallace PA-C by Lara Don medical detail representative, on 07/30/2023 at 11:01 am, EST. Coding Level of Care Code New Pt Level 4 (29333) Diagnoses Painful arc syndrome of right shoulder M75.101 CPT Codes Coding - 44517 Large joint: 48724 - Large joint ([id number])
== END 2023-07-30 12:06 | disposition home or self-care (01) ==
PROVIDERS: PCP Internal Medicine; Visit Provider Physician Assistant
DX: M75.101 Unspecified rotator cuff tear or rupture of right shoulder, not specified as traumatic (principal)
CPT/HCPCS: 20610; 95911; 99204

== ENCOUNTER 2023-07-30 14:58 | Outpatient (REF) | payer MEDICARE, OTHER, SELFPAY | END 2023-07-30 14:59 | disposition home or self-care (01) | LOC: HO.NEURO 14:58 | PROVIDERS: PCP Internal Medicine; Visit Provider Physical Medicine & Rehabilitation | DX: G56.03 Carpal tunnel syndrome, bilateral upper limbs (principal) | CPT/HCPCS: 20610; 95911; J1040 ==

== ENCOUNTER 2023-08-06 14:05 | Outpatient (AMB) | payer MEDICARE, OTHER, SELFPAY ==
[2023-08-06 14:19] VITALS: BP 130/82; PULSE 41; BMI 44.2
--- NOTE | 2023-08-06 14:19 | MHC.OFFVIS ---
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 Today she reports that she has been feeling generally well. She does have some fatigue. She admits to being mostly sedentary. She has been having issues with her right knee which limits her activity level. She denies chest discomfort, shortness of breath, palpitations, presyncope, syncope, PND, orthopnea or edema. Has been on clonidine for a long time, no recent changes to dose. Takes meds as directed. [facility] Medical History Carpal tunnel syndrome on both sides Restless legs syndrome CHAZ (obstructive sleep apnea) Sinus bradycardia Intermittent lightheadedness Vitamin D deficiency Essential hypertension Hypertrophic toenail Lactose intolerance Seasonal allergies Postmenopausal bleeding Tear of lateral meniscus of right knee Patellofemoral syndrome of right knee Morbid obesity IBS (irritable bowel syndrome) Bile salt-induced diarrhea Restless leg syndrome Depression Keratoconus of both eyes Surgical History History of tubal ligation History of laparoscopic cholecystectomy Family History Father Hodgkins disease Son No problems noted. Son No problems noted. Daughter No problems noted. Other Mental health disorder Social History Housing: House Alcohol intake: current Alcohol intake frequency: holidays/special occasions only Patient Tobacco Use Status: Never used Tobacco e-Cigarette/Vaping Use: Never Used Current occupational status: retired Cognitive needs: No Hearing needs: No Vision needs: No Review of Systems Const All systems reviewed & are unremarkable except as noted in HPI and below Reports fatigue ENT Denies dizziness Card Denies chest pain, Denies chest pain at rest, Denies chest pain with activity, Denies rapid heart rate, Denies pedal edema, Denies edema, Denies leg edema, Denies lightheadedness, Denies palpitations, Denies dyspnea, Denies dyspnea on exertion and Denies orthopnea Resp Denies cough, Denies dyspnea and Denies dyspnea on exertion GI Denies hematochezia and Denies change in stool character Musc Details: Right knee pain Denies abnormal gait, Reports limited range of motion, Denies muscle cramps, Denies muscle weakness, Denies numbness, Denies radiating pain into limb, Denies stiffness and Denies tingling Neuro Denies abnormal gait, Denies dizziness, Denies numbness and Denies tingling Endo Reports fatigue and Denies palpitations Physical Exam Vital Signs: Last Vital Signs Pulse 41 L 08/06/23 14:19 BP 130/82 08/06/23 14:19 BMI result Body Mass Index 44.2 Const General: cooperative, healthy appearing, comfortable and no acute distress Orientation/consciousness: patient oriented x3 Neck Neck: Yes normal visual inspection Resp Effort & Inspection: normal respiratory effort Auscultation: clear to auscultation bilaterally, no crackles, no rales, no rhonchi and no wheezes Cardio Jugular venous distension: no JVD Rate: bradycardic Rhythm: regular rhythm Heart sounds: S1 normal heart sound present, S2 normal heart sound present, no gallops, no murmurs and no rubs Neuro General: patient oriented x3 Extrem General: Yes normal to inspection Psych Appearance: grossly normal Mental Status: mental status grossly normal Speech and movement: Normal speech and movement present Office Procedures EKG Details: Today, read by me, marked sinus bradycardia, rate 41, normal [place], QRS and QTC intervals [id number], Complete Assessment & Plan Assessment & Plan (1) Sinus bradycardia: Code(s): R00.1 - Bradycardia, unspecified Plan: History of sinus bradycardia, asymptomatic. Last Holter monitor done 12/26/2021 showed average heart rate 64, lowest heart rate 39, during hour of sleep, rare PACs and PVCs.. Echocardiogram done 07/27/2022 was normal study. She is on low-dose clonidine which she takes at night and states that she has been on this dose long-term. She is not on any other medications that cause bradycardia. She denies presyncope, syncope, falls. She has been experiencing some fatigue and admits to being mostly sedentary. EKG done today showing sinus bradycardia, heart rate 41. I ambulated her in the hallway using sat monitor and heart rate gita to 79 beats per minute. She is unable to do an exercise stress test to assess for chronotropic competence due to her knee pain and inability to walk on a treadmill. At this time will update Holter monitor to assess for any significant bradycardia. Plan to call her with results. No indication for pacemaker placement at this time. Avoid rate slowing medications. Cardiology office visit in 6 months, sooner if needed (2) Essential hypertension: Code(s): I10 - Essential (primary) hypertension Plan: Normal range at present. No med changes made (3) CHAZ (obstructive sleep apnea): Comment: SHE HAS BEEN USING CPAP VERY REGULARLY IN THE PAST. CURRENTLY SHE IS SOMEWHAT NON COMPLIANT, BUT INTENDS TO USE THE CPAP REGULARLY SOON SHE GETS NEW SUPPLIES. ORDER FOR NEW SUPPLIES IS SENT. SHE HAS URGE TO USE IT EVERY NIGHT. HER COMPLIANCE WOULD BE MONITORED MORE CLOSELY. Code(s): G47.33 - Obstructive sleep apnea (adult) (pediatric) Plan: Patient tells me she has been compliant recently Orders: Orders ECG 3 day holter monitor Today R00.1 - Bradycardia, unspecified Coding Level of Care Code Est Pt Level 4 (52532) Diagnoses Sinus bradycardia R00.1 Essential hypertension I10 CHAZ (obstructive sleep apnea) G47.33 CPT Codes EKG - CPT: 83615-[id number], Complete ([id number]) Time Spent (min) 28
== END 2023-08-06 15:02 | disposition home or self-care (01) ==
PROVIDERS: PCP Internal Medicine; Visit Provider Nurse Practitioner Family
DX: R00.1 Bradycardia, unspecified (principal); I10 Essential (primary) hypertension; G47.33 Obstructive sleep apnea (adult) (pediatric)
CPT/HCPCS: 93010; 99214

== ENCOUNTER → 2023-08-06 14:05 | Outpatient (BNVA) | payer MEDICARE, OTHER, SELFPAY | PROVIDERS: PCP Internal Medicine; Visit Provider Nurse Practitioner Family | DX: R00.1 Bradycardia, unspecified (principal); I10 Essential (primary) hypertension; G47.33 Obstructive sleep apnea (adult) (pediatric) | CPT/HCPCS: 93005; 99212 ==

== ENCOUNTER → 2023-08-17 08:21 | Outpatient (REF) | payer MEDICARE, OTHER, SELFPAY ==
--- NOTE | 2023-08-17 08:23 | HM_ITS ---
Conclusion: 1. Patient was monitored for total period of 3 days 2. Baseline was normal sinus rhythm with average heart of 64 beats per minute 3. Frequent sinus bradycardia with 42% of time heart rate below 60 beats per minute 4. No significant pauses noted 5. Rare ectopy noted 6. Patient reported 5 events correlating symptoms of fast heart rate or being tired, correlating with sinus rhythm MTDD
== END ==
LOC: HO.CARD 08:21
PROVIDERS: PCP Internal Medicine; Visit Provider Nurse Practitioner Family
DX: R00.1 Bradycardia, unspecified (principal)
CPT/HCPCS: 93242

== ENCOUNTER → 2023-08-17 08:23 | Outpatient (BNV) | payer MEDICARE, OTHER, SELFPAY | PROVIDERS: PCP Internal Medicine; Visit Provider Internal Medicine Cardiovascular Disease | DX: R00.1 Bradycardia, unspecified (principal) | CPT/HCPCS: 93244 ==

== ENCOUNTER 2023-08-19 10:35 | Outpatient (AMB) | payer MEDICARE, OTHER, SELFPAY ==
--- NOTE | 2023-08-19 10:41 | A.OFFVIS_ITS ---
Intake Vital Signs 08/19/23 10:47 Height 5 ft 1 in Weight 223 lb BMI 42.1 Intake Visit Reasons: OV-Right Knee Durolane Intake Note: Linda is a 63 year old female who presents today for a right knee Durolane injection Allergies latex [LATEX] Allergy (Mild, Verified 08/06/23 14:21) RASH HPI OV-Right Knee Durolane HPI Details Here for right dura line PFSH Medical History Carpal tunnel syndrome on both sides Restless legs syndrome CHAZ (obstructive sleep apnea) Sinus bradycardia Intermittent lightheadedness Vitamin D deficiency Essential hypertension Hypertrophic toenail Lactose intolerance Seasonal allergies Postmenopausal bleeding Tear of lateral meniscus of right knee Patellofemoral syndrome of right knee Morbid obesity IBS (irritable bowel syndrome) Bile salt-induced diarrhea Restless leg syndrome Depression Keratoconus of both eyes Surgical History History of tubal ligation History of laparoscopic cholecystectomy Family History Father Hodgkins disease Son No problems noted. Son No problems noted. Daughter No problems noted. Other Mental health disorder Social History Housing: House Alcohol intake: current Alcohol intake frequency: holidays/special occasions only Patient Tobacco Use Status: Never used Tobacco e-Cigarette/Vaping Use: Never Used Current occupational status: retired Cognitive needs: No Hearing needs: No Vision needs: No Physical Exam Vital Signs: BMI result Body Mass Index 42.1 Office Procedures Joint Injection/Drain Joint Injection/Drain Details: Injected Durolane. Site was prepped using aseptic technique. Patient tolerated the procedure well. Primary Site: right knee Approach Used: anterolateral Coding 74397 - Large joint Procedure code (CPT) selection complete Results Reviewed Results Reviewed: 08/19/23 10:35 Hyaluronate Sodium, Stabilized [Durolane] 60 mg INTRAARTIC .STK-MED ONE Assessment & Plan Assessment & Plan (1) Osteoarthritis of right shoulder: Code(s): M19.011 - Primary osteoarthritis, right shoulder Qualifiers: Osteoarthritis type: unspecified Qualified Code(s): M19.011 - Primary osteoarthritis, right shoulder Plan: Injected Durolane right knee. No complications. Coding Level of Care Code Est Pt Level 2 (95430) Diagnoses Osteoarthritis of right shoulder, unspecified osteoarthritis type M19.011 Osteoarthritis type: unspecified CPT Codes Coding - 96311 Large joint: 68412 - Large joint ([id number])
[2023-08-19 10:47] VITALS: BMI 42.1
== END 2023-08-19 11:29 | disposition home or self-care (01) ==
PROVIDERS: PCP Internal Medicine; Visit Provider Orthopaedic Surgery
DX: M19.011 Primary osteoarthritis, right shoulder (principal)
CPT/HCPCS: 20610

== ENCOUNTER → 2023-08-19 | Outpatient (BNVA) | payer MEDICARE, OTHER, SELFPAY | PROVIDERS: PCP Internal Medicine; Visit Provider Orthopaedic Surgery | DX: M17.11 Unilateral primary osteoarthritis, right knee (principal) | CPT/HCPCS: 20610; J7318 ==

== ENCOUNTER 2023-09-09 11:00 | Outpatient (RCR) | payer MEDICARE, OTHER, SELFPAY ==
--- NOTE | 2023-08-05 12:12 | MHC.PT.EP ---
[facility] [place] Office [place] Office [place] Office [address] Lisandro Salazar [address] [phone] F: [phone] F: [phone] F: [phone] F: [phone] Physical Therapy Plan of Care Date of Evaluation: 08/05/23 Date of Surgery: Diagnosis: This is a 63 yo female presenting to skilled PT with a script for OA R shoulder. Assessment: This is a 63 yo female presenting to skilled PT with a script for OA R shoulder. Pain has been ongoing for about 4 months now, she reports that they were doing a lot of renovations in the house and she felt like she may have pulled a muscle. She was having a hard time reaching up or to the side after this happened. She is being followed by [facility] who gave her a cortisone injection (07/30) and referred to PT. She feels like she has gotten better since then. Today she reports that she has some symptoms with doing activities for extended periods of time; reading, laundry, pulling, reaching up. Her symptoms are located throughout the joint, under the arm and into the scapular area (does endorse tennis elbow and arthritis in the wrist at baseline). She does report clicking or catching (this may be due to fear of pain with movement per patient) but denies neck pain. Assessment reveals pain that ranges from up to a 3/10 at the worst. Patient demos decreased R shoulder and cervical ROM, strength of B shoulder's (R more than L due to pain), TTP at GHJ joint line posteriorly, UT and lats, impaired posture with forward head and rounded shoulders with compensatory posture holding arm adducted and IR. Based on functional limitations, impaired QOL and pain tolerance patient is a good candidate for skilled PT 2x/wk for 4wks. Frequency and Duration: The patient will be seen 2x/wk for 4wks Short Term Goals: (in 2 weeks) Demo I with HEP Improve shoulder AROM by at least 10 degs Demo proper scapular recruitment with appropriate shoulder strengthening exercises Intermediate Goals: (in 4 wks) Improve shoulder nonpainful AROM to almost near equal B and WFL Demo at least 1 grade improvement in MMT for shoulder Improve SPADI by at least 10 points Improve overall functional QOL by at least 50% Treatment Plan: Modalities to reduce pain, spasms and effusion. Manual therapy to restore motion and function. Therapeutic exercise to improve strength and flexibility. Neuromuscular re-education for posture and balance. Therapeutic activities to return to functional activities of daily living. Electronically signed by: Annita Marcos PT Please sign and return to therapist. Thank you for your referral.
--- NOTE | 2023-10-08 07:21 | MHC.PT.DC ---
[facility] [place] [facility] [place] Office [place] Office [address] Lisandro Salazar [address] [phone] F: [phone] F: [phone] F: [phone] F: [phone] Physical Therapy Discharge Report Diagnosis: This is a 63 yo female presenting to skilled PT with a script for OA R shoulder. Date of Surgery: Date of Evaluation: 08/05/23 Date of Discharge: 10/08/23 Treatments to Date: 7 Cancellations to Date: 0 No Shows to Date: 0 Discharge Status: Achieved Goals Improved Function Independent with HEP Discharge Summary: Patient with good ROM and strength, pain is improved and she has more function. She has met her goals and is ready for DC at this time. She reports that she is compliant with her HEP. She does endorse knee pain, educated her to follow up with PCP or ortho if she would like to obtain an order for PT for this. I will keep her chart open for 30 days in case her status changes. DC to HEP Electronically signed by: Annita Marcos PT Please sign and return to therapist. Thank you for your referral.
== END 2023-10-08 07:21 | disposition home or self-care (01) ==
LOC: HO.PTCHIC 11:00
PROVIDERS: PCP Internal Medicine; Visit Provider Physician Assistant
DX: M19.011 Primary osteoarthritis, right shoulder (principal)
CPT/HCPCS: 97110; 97140; 97162

== ENCOUNTER 2023-11-09 14:58 | Outpatient (AMB) | payer MEDICARE, OTHER, SELFPAY ==
--- NOTE | 2023-11-09 14:59 | MHC.OFFWIV ---
Intake Vital Signs 11/09/23 15:00 Height 5 ft 1 in BP 122/80 Blood Pressure Location Rt brachial Position Sitting Pulse 50 Pulse Source Pulse Oximeter Temp 98.1 F Temp Source Oral Pulse Oximetry (%) 96 Oxygen Delivery Method Room Air Intake Visit Reasons: EST/sinus infection (lobby masked) Intake Note: pt is here for c/o possible sinus infection, congestion, sinus pressure sicnce new years Patient Tobacco Use Status: Never used Tobacco Allergies latex [LATEX] Allergy (Mild, Verified 11/09/23 15:18) RASH Medication List - Last Reconciled 11/09/23 by Jose Fernandez MD bupropion HCl 300 mg PO DAILY cetirizine 10 mg PO BEDTIME PRN clonidine HCl 0.1 mg PO BEDTIME escitalopram oxalate 20 mg PO DAILY ropinirole 1 mg (2 x 0.5 mg) PO BEDTIME Do you need a note to return to daycare/school/sports/work: Yes HPI EST/sinus infection (lobby masked) HPI Details Patient presents for a sick visit. Reporting symptoms of sinus congestion, sore throat and difficulty swallowing. Low-grade fever. No family member is sick. No recent travel. Patient reports symptoms of malaise and fatigue. [facility] Medical History Carpal tunnel syndrome on both sides Restless legs syndrome CHAZ (obstructive sleep apnea) Sinus bradycardia Intermittent lightheadedness Vitamin D deficiency Essential hypertension Hypertrophic toenail Lactose intolerance Seasonal allergies Postmenopausal bleeding Tear of lateral meniscus of right knee Patellofemoral syndrome of right knee Morbid obesity IBS (irritable bowel syndrome) Bile salt-induced diarrhea Restless leg syndrome Depression Keratoconus of both eyes Surgical History History of tubal ligation History of laparoscopic cholecystectomy Family History Father Hodgkins disease Son No problems noted. Son No problems noted. Daughter No problems noted. Other Mental health disorder Social History Housing: House Alcohol intake: current Alcohol intake frequency: holidays/special occasions only Patient Tobacco Use Status: Never used Tobacco e-Cigarette/Vaping Use: Never Used Current occupational status: retired Cognitive needs: No Hearing needs: No Vision needs: No Physical Exam Vital Signs: Last Vital Signs Temp 98.1 F 11/09/23 15:00 Pulse 50 11/09/23 15:00 BP 122/80 11/09/23 15:00 Pulse Ox 96 11/09/23 15:00 Oxygen Delivery Method Room Air 11/09/23 15:00 Const General: cooperative and healthy appearing Nutritional Appearance: well nourished Orientation/consciousness: patient oriented x3 Limitations: no limitations HEENT Head: Yes normal to inspection Eyes General: appearance normal, both eyes and all related structures Neck Neck: Yes normal visual inspection Chest Chest palpation & inspection: normal palpation of entire chest wall Resp Effort & Inspection: normal respiratory effort Neuro General: patient oriented x3 Assessment & Plan Assessment & Plan (1) Upper respiratory tract infection: Code(s): J06.9 - Acute upper respiratory infection, unspecified Plan: Antibiotics ordered. Increase fluid intake. Tylenol for aches and pains. If symptoms worsen, follow-up here for a recheck. Coding Level of Care Code Est Pt Level 3 (03158) Diagnoses Upper respiratory tract infection J06.9
[2023-11-09 15:00] VITALS: BP 122/80; PULSE 50; TEMP 36.7; O2SAT 96
== END 2023-11-09 16:03 | disposition home or self-care (01) ==
PROVIDERS: PCP Internal Medicine; Visit Provider Internal Medicine
DX: J06.9 Acute upper respiratory infection, unspecified (principal)
CPT/HCPCS: 99213

== ENCOUNTER 2023-12-23 10:50 | Outpatient (AMB) | payer MEDICARE, OTHER, SELFPAY ==
--- NOTE | 2023-12-23 11:02 | A.OFFVIS_ITS ---
Intake Vital Signs 12/23/23 11:03 Height 5 ft 1 in Weight 245 lb 13.047 oz BMI 46.4 BP 122/82 Blood Pressure Location Lt brachial Position Sitting Pulse 51 Pulse Source Pulse Oximeter Pulse Oximetry (%) 98 Oxygen Delivery Method Room Air Intake Visit Reasons: nolan Intake Note: pt is here for follow up and states she feeling fine, cpap is going well, had bronchitis so some usage was low, couldn't use it while sick. Oriental Rug Stretcher Required: No Allergies latex [LATEX] Allergy (Mild, Verified 12/23/23 11:23) RASH Medication List - Last Reconciled 12/23/23 by Faby Oakes MD bupropion HCl 300 mg PO DAILY cetirizine 10 mg PO BEDTIME PRN clonidine HCl 0.1 mg PO BEDTIME escitalopram oxalate 20 mg PO DAILY ropinirole 1 mg (2 x 0.5 mg) PO BEDTIME Do you need a note to return to daycare/school/sports/work: No HPI nolan HPI Details 63 YEARS OLD FEMALE WITH MORBID OBESITY AND OBSTRUCTIVE SLEEP APNEA IS HERE FOR 6 MONTHS FOLLOW-UP. SHE USES CPAP VERY REGULARLY AND SLEEPS WELL. THERE IS NO ISSUE WITH THE CPAP DEVICE ARE THE MASK, SHE USES NASAL PILLOWS. ONLY PROBLEM IS THAT DURING THE WINTER MONTHS SHE HAS BEEN MORE SEDENTARY, EATING SOMEWHAT ON LIMITED. SHE BLAMES HER WHO COOKS THE FOOD AT HOME. ALSO HER BEST FRIEND'S FATHER AND THERE WAS SOME EMOTIONAL OVEREATING. SHE PLANS TO START WALKING AROUND. AND WILL TRY TO CUT DOWN THE CALORIES INTAKE. [facility] Medical History Carpal tunnel syndrome on both sides Restless legs syndrome NOLAN (obstructive sleep apnea) Sinus bradycardia Intermittent lightheadedness Vitamin D deficiency Essential hypertension Hypertrophic toenail Lactose intolerance Seasonal allergies Postmenopausal bleeding Tear of lateral meniscus of right knee Patellofemoral syndrome of right knee Morbid obesity IBS (irritable bowel syndrome) Bile salt-induced diarrhea Restless leg syndrome Depression Keratoconus of both eyes Surgical History History of tubal ligation History of laparoscopic cholecystectomy Family History Father Hodgkins disease Son No problems noted. Son No problems noted. Daughter No problems noted. Other Mental health disorder Social History Housing: House Alcohol intake: current Alcohol intake frequency: holidays/special occasions only Patient Tobacco Use Status: Never used Tobacco e-Cigarette/Vaping Use: Never Used Current occupational status: retired Cognitive needs: No Hearing needs: No Vision needs: No Review of Systems Const All systems reviewed & are unremarkable except as noted in HPI and below Reports fatigue Eyes Reports no additional complaints ENT Reports no additional complaints, Denies vertigo and Denies dizziness Card Denies chest pain, Denies irregular heart rhythm, Denies leg edema and Reports slow heart rate Resp Reports no additional complaints GI Reports GI cramping and Reports dyspepsia Reports no additional complaints Musc Reports back pain and Reports arthralgias (KNEES) Skin/Breast Reports system reviewed and no additional complaints, except as documented Neuro Denies vertigo, Denies dizziness, Denies focal weakness and Reports restless legs Psych Reports no additional complaints Endo Reports no additional complaints and Reports fatigue Physical Exam Vital Signs: Last Vital Signs Pulse 51 12/23/23 11:03 BP 122/82 12/23/23 11:03 Pulse Ox 98 12/23/23 11:03 Oxygen Delivery Method Room Air 12/23/23 11:03 BMI result Body Mass Index 46.4 THE PATIENT IS GROSSLY OBESE, WITH A ROUND FACE. Const General: comfortable, no acute distress, alert and awake Orientation/consciousness: patient oriented x3 HEENT Head: Yes normal to inspection General nose exam: No nasal polyps present and No nasal discharge present Face and sinus: Yes sinuses nontender Mouth: oropharynx normal Throat: No posterior oropharynx normal (NARROW AND CROWDED, MALLAMPATI CLASS 3) Eyes General: appearance normal, both eyes and all related structures Neck Neck: Yes normal visual inspection, Yes no lymphadenopathy, Yes trachea midline, Yes no JVD and Yes other (NECK CIRCUMFERENCE 14-1/2 INCHES) Thyroid: Thyroid normal Chest Chest palpation & inspection: normal inspection of the chest, normal palpation of entire chest wall and no tenderness Resp Other: PERCUSSION NOTE RESONANT, BREATH SOUNDS ARE DIMINISHED OVER THE LOWER LOBES, BUT EQUAL ON BOTH SIDES NO WHEEZES RHONCHI OR CREPITATIONS ARE HEARD. Cardio Palpation: normal PMI Rate: regular rate Rhythm: regular rhythm Heart sounds: no gallops and no murmurs GI Palpation (GI): Soft to palpation, nontender, No hepatosplenomegaly present and no masses Auscultation: normal bowel sounds Back/Spine/Pelvis Thoracic/Lumbar Spine: thoracic and lumbar spine normal to inspection and thoraco-lumbar ROM limited Skin General skin exam: no rashes or lesions noted Neuro General: patient oriented x3 and no focal motor deficits Cranial nerves: Yes CN's II-XII intact bilaterally Extrem Other: RIGHT SHOULDER AND RIGHT KNEE ARE PAINFUL General: Yes normal to inspection, Yes no clubbing, cyanosis or edema (LOWER EXTREMITIES ARE VERY BULKY, BUT WITHOUT PITTING EDEMA.) and Yes no calf tenderness Psych Appearance: grossly normal and well kempt Speech and movement: Normal speech and movement present Results Reviewed Results Reviewed: COMPLIANCE REPORT REVIEWED AND SHE HAS USED 30/30 NIGHTS, 100%. ONLY A FEW NIGHTS SHE USED LESS THAN 4 HOURS BUT MOST OF THE NIGHTS SHE IS USING 6 HOURS OR MORE. RESIDUAL AHI ONLY 0.9 Assessment & Plan Assessment & Plan (1) Morbid obesity with BMI of 45.0-49.9, adult: Comment: THIS PATIENT REMAINS MORBIDLY OBESE, CURRENT BMI 46.4 SHE HAS GAINED WEIGHT . Code(s): E66.01 - Morbid (severe) obesity due to excess calories; Z68.42 - Body mass index [BMI] 45.0-49.9, adult Plan: I STRESSED THAT SHE HAS TO CUT DOWN THE PORTIONS, WORK WITH THE DIETITIAN, AND START LOSING MORE WEIGHT. (2) NOLAN (obstructive sleep apnea): Comment: SHE HAS BEEN USING CPAP VERY REGULARLY AND CLAIMS TO BE SLEEPING WELL AT NIGHT. COMPLIANCE REPORT IS GOOD. Code(s): G47.33 - Obstructive sleep apnea (adult) (pediatric) Plan: COMMENDED FOR GOOD COMPLIANCE AND ADVISED TO CONTINUE USING THE CPAP EVERY NIGHT (3) Restless legs syndrome: Comment: Mild RSL ( WHICH MAY BE DUE TO SIDE EFFECT FROM SSRI ) REMAINS WELL CONTROLLED. Code(s): G25.81 - Restless legs syndrome Plan: CONTINUE TAKING ROPINIROLE 1 MG AT BEDTIME Coding Level of Care Code Est Pt Level 3 (16411) Diagnoses Morbid obesity with BMI of 45.0-49.9, adult E66.01; Z68.42 NOLAN (obstructive sleep apnea) G47.33 Restless legs syndrome G25.81
[2023-12-23 11:03] VITALS: BP 122/82; PULSE 51; O2SAT 98; BMI 46.4
== END 2023-12-23 11:25 | disposition home or self-care (01) ==
PROVIDERS: PCP Internal Medicine; Visit Provider Internal Medicine
DX: E66.01 Morbid (severe) obesity due to excess calories (principal); Z68.42 Body mass index [BMI] 45.0-49.9, adult; G47.33 Obstructive sleep apnea (adult) (pediatric); G25.81 Restless legs syndrome
CPT/HCPCS: 99213

== ENCOUNTER → 2023-12-23 10:50 | Outpatient (BNVA) | payer MEDICARE, OTHER, SELFPAY | PROVIDERS: PCP Internal Medicine; Visit Provider Internal Medicine | DX: G47.33 Obstructive sleep apnea (adult) (pediatric) (principal); G25.81 Restless legs syndrome; E66.01 Morbid (severe) obesity due to excess calories; Z68.42 Body mass index [BMI] 45.0-49.9, adult | CPT/HCPCS: 99212 ==

== ENCOUNTER 2023-12-28 13:51 | Outpatient (REF) | payer MEDICARE, OTHER, SELFPAY ==
--- NOTE | ~2023-12-28 | MM_ITS ---
EXAMINATION: MM SCREENING DIGITAL BREAST TOMOSYNTHESIS, BILATERAL CLINICAL INFORMATION: Screening. Asymptomatic. COMPARISON: Mammography: 08/04/2021, 04/29/2020, 04/26/2018; left breast ultrasound 09/03/2021 TECHNIQUE: Digital breast tomosynthesis is performed in both the craniocaudal and mediolateral oblique views along with computer-aided detection (CAD). Synthesized 2D images are generated from the tomosynthesis. FINDINGS: There are scattered areas of fibroglandular density (ACR BI-RADS breast composition Category b). There is a stable subcentimeter nodule in the 9:00 axis right breast, posterior one third. This is unchanged and benign. There is a similar right retroareolar subcentimeter nodule, also unchanged. Previously seen left cyst 3:00 axis is no longer definitively visualized. There are no suspicious masses, suspicious grouped calcifications, or areas of architectural distortion in either breast. The parenchymal pattern is stable from prior exams. No axillary or skin abnormality. MM/MM tomosynthesis screening BI IMPRESSION: No mammographic evidence of malignancy. ASSESSMENT: BI-RADS BI-RADS 2 - Benign Findings RECOMMENDATION: Routine annual mammography screening. 1 year F/U This examination should not preclude the clinical evaluation of a suspicious palpable abnormality. This patient's information was entered into a reminder system with a target due date for their next mammogram.
== END 2023-12-28 13:52 | disposition home or self-care (01) ==
LOC: HO.MAMMO 13:51
PROVIDERS: PCP Internal Medicine; Visit Provider Internal Medicine
DX: Z12.31 Encounter for screening mammogram for malignant neoplasm of breast (principal)
CPT/HCPCS: 77063; 77067

== ENCOUNTER → 2023-12-28 14:00 | Outpatient (BNV) | payer MEDICARE, OTHER, SELFPAY | PROVIDERS: PCP Internal Medicine; Visit Provider Radiology Diagnostic Radiology | DX: Z12.31 Encounter for screening mammogram for malignant neoplasm of breast (principal) | CPT/HCPCS: 77063; 77067 ==

== ENCOUNTER 2024-01-26 08:54 | Outpatient (AMB) | payer MEDICARE, OTHER, SELFPAY ==
--- NOTE | 2024-01-26 09:01 | MHC.PC.OV ---
Vital Signs 01/26/24 09:03 Height 5 ft 1 in Weight 246 lb BMI 46.5 BP 132/72 Blood Pressure Location Lt brachial Position Sitting Pulse 60 Pulse Source Pulse Oximeter Pulse Oximetry (%) 98 Oxygen Delivery Method Room Air Intake Visit Reasons: Cornea transplant 02/09/24/Ok Dr Olson Intake Note: Pt is here today for her pre-op Lt eye w/penetrating keratoplasty 02/09/[address] Gomez Allergies latex [LATEX] Allergy (Mild, Verified 01/26/24 09:18) RASH Medication List - Last Reconciled 01/26/24 by Elin Nicolas MD bupropion HCl 300 mg PO DAILY clonidine HCl 0.1 mg PO BEDTIME escitalopram oxalate 20 mg PO DAILY ropinirole 1 mg (2 x 0.5 mg) PO BEDTIME Tobacco use date assessed: 01/26/24 Dental Screening Dental Screen Date: 01/26/24 Did you have a dental visit in the last 12 months?: Yes Did you have a dental problem in the last 6 months where you did not have access to dental care?: Yes Was dental information given to patient?: Patient has dentist HPI Cornea transplant 02/09/24/Ok Dr Olson HPI Details 63-year-old femal e with past medica l history of morbi d obesity, Depress ion , hypertension , obstructive slee p apnea with CPAP use, sinus bradyca rdia with a 3 day Holter monitor don e 08/17/2023 showi ng normal sinus rh ythm as a baseline with an average h eart rate of 64 be ats per minute, fr equent sinus koko cardia with 42% of time heart rate b elow 60 beats per minute with no sig nificant pauses, h ere today for preo perative examinati on for cataract ex traction with IOL, with penetrating keratoplasty on e left eye, reques luis alberto by Dr. Gomez , with surgery mayo eduled for 02/09/20. She states del t she has been fee ling well. Denie s having chest dis comfort, no shortn ess of breath, no palpitations, sync ope, presyncope,. She admits to keegan ng mostly sedentar y. She has been h aving issues with her right knee whi ch limits her acti vity level. [facility] Medical History Carpal tunnel syndrome on both sides Restless legs syndrome CHAZ (obstructive sleep apnea) Sinus bradycardia Intermittent lightheadedness Vitamin D deficiency Essential hypertension Hypertrophic toenail Lactose intolerance Seasonal allergies Postmenopausal bleeding Tear of lateral meniscus of right knee Patellofemoral syndrome of right knee Morbid obesity IBS (irritable bowel syndrome) Bile salt-induced diarrhea Restless leg syndrome Depression Keratoconus of both eyes Surgical History History of tubal ligation History of laparoscopic cholecystectomy Family History Father Hodgkins disease Son No problems noted. Son No problems noted. Daughter No problems noted. Other Mental health disorder Social History Housing: House Alcohol intake: current Alcohol intake frequency: holidays/special occasions only Patient Tobacco Use Status: Never used Tobacco e-Cigarette/Vaping Use: Never Used Current occupational status: retired Cognitive needs: No Hearing needs: No Vision needs: No Female Reproductive History Menstrual Menopause type: natural Questionnaire PHQ-9 Over the last 2 weeks, how often have you been bothered by any of the following problems? 1. Little interest or pleasure in doing things: not at all 2. Feeling down, depressed, or hopeless: not at all 3. Trouble falling or staying asleep, or sleeping too much: not at all 4. Feeling tired or having little energy: not at all 5. Poor appetite or overeating: not at all 6. Feeling bad about yourself - or that you are a failure or have let yourself or your family down: not at all 7. Trouble concentrating on things, such as reading the newspaper or watching television: not at all 8. Moving or speaking so slowly that other people could have noticed. Or the opposite - being so fidgety or restless that you have been moving around a lot more than usual: not at all 9. Thoughts that you would be better off or of hurting yourself in some way: not at all Total score: 0 Depression Screening Interpretation: Negative Depression Screening Done: Yes 47894 - PHQ-9 Billing: Yes Source: Developed by Drs. Donald Leahy, Betsey José, Elvis Walker and colleagues, with an educational emily from [employer]. Thrive Questionnaire Date Thrive assessed: 01/26/24 I am a: Patient What is your living situation today?: I have a steady place to live Within the past 12 months, did the food you bought not last and you didn't have the money to get more?: Never true Within the past 12 months, did you worry whether your food would run out before you got money to buy more?: Never true Do you have trouble paying for medicines?: No Do you have trouble getting transportation to medical appointments?: No Do you have trouble paying your heating and electricity bill?: No Do you have trouble taking care of your child, family member or friend?: No Do you have trouble with day-to-day activities such as bathing, preparing meals, shopping, managing finances, etc.?: No Are you currently unemployed and looking for a job?: No Are you interested in more education?: No THRIVE Score: 0 AUDIT C Alcohol Use Questionnaire (AUDIT-C) 1. How often do you have a drink containing alcohol?: Never Total Score: 0 TIA-7 AMB Questionnaire TIA-7 Date TIA - 7 assessed: 01/26/24 Feeling nervous, anxious, or on edge: 0 = Not at all Not being able to stop or control worryin = Not at all Worrying too much about different things: 0 = Not at all Trouble relaxin = Not at all Being so restless that it is hard to sit still: 0 = Not at all Becoming easily annoyed or irritable: 0 = Not at all Feeling afraid as if something awful might happen: 0 = Not at all Total TIA-7 score (0-4 normal; 5-9 mild; 10-14 moderate; 15-21 severe): 0 Source: Developed by Drs. Donald Leahy, Betsey José, Elvis Walker and colleagues, with an educational emily from [employer]. TIA-7 Assessment Billing TIA-7 Assessment Tool: TIA-7 Assessment 05889 Review of Systems Const Reports no additional complaints Eyes Reports blurry vision (OS) ENT Denies dizziness Card Denies chest pain at rest, Denies chest pain with activity, Denies pedal edema, Denies lightheadedness, Denies palpitations, Denies dyspnea, Denies dyspnea on exertion and Denies orthopnea Resp Denies cough, Denies dyspnea and Denies dyspnea on exertion GI Reports no additional complaints Reports no additional complaints Musc Denies abnormal gait, Denies muscle cramps, Denies muscle weakness, Denies numbness, Denies radiating pain into limb and Denies tingling Skin/Breast Denies breast pain, Denies breast mass and Denies rash Neuro Denies abnormal gait, Denies dizziness, Denies numbness, Denies convulsions, Denies Sensory deficit (Neuro), Denies tingling and Denies tremor(s) Psych Reports no additional complaints Endo Denies palpitations Juan/Lymph Reports no additional complaints Aller/Immun Reports no additional complaints Physical exam (Primary Care) Vital Signs: Last Vital Signs Pulse 57 01/26/24 09:03 BP 132/72 01/26/24 09:03 Pulse Ox 98 01/26/24 09:03 Oxygen Delivery Method Room Air 01/26/24 09:03 BMI result Body Mass Index 46.5 Tobacco/Smoking Status: Tobacco use Status Tobacco use date assessed 01/26/24 01/26/24 09:07 Patient Tobacco Use Status Never used Tobacco 01/26/24 09:02 e-Cigarette/Vaping Use Never Used 01/26/24 09:02 PHQ-9: PHQ-9 Score PHQ-9: Total score 0 01/26/24 23:50 Depression Screening Interpretation: Negative Thrive Assessment: Date of Thrive Assessment Date Thrive assessed 01/26/24 01/26/24 09:10 Const General: comfortable, no acute distress and alert Nutritional Appearance: obese morbidly obese Orientation/consciousness: patient oriented x3 HENMT Ears: hearing grossly normal bilaterally and TM's normal bilaterally General nose exam: Normal external nose present and No nasal discharge present Face and sinus: Yes face symmetric Mouth: Normal oral and palatal mucosa present, oropharynx normal and moist mucous membranes Eyes General: appearance normal, both eyes and all related structures Neck Neck: Yes full ROM, Yes no lymphadenopathy and Yes supple Chest Breast/axilla palpation: normal palpation of the breasts Resp Auscultation: clear to auscultation bilaterally Cardio Other: S1-S2 present regular rate and rhythm GI Other: Obese, soft, nontender, no mass palpated General: Yes no CVA tenderness Back/Spine/Pelvis Back: no CVA tenderness and No back tenderness Skin General skin exam: no rashes or lesions noted Neuro General: patient oriented x3, gait normal, tone normal, moves all extremities, Normal light touch and pain sensation and no focal motor deficits Sensory Exam: No Sensory deficit (Neuro) Extrem General: Yes full ROM, Yes no joint enlargement, Yes no clubbing, cyanosis or edema and Yes normal gait Psych Appearance: grossly normal and well kempt Mental Status: mental status grossly normal Speech and movement: Normal speech and movement present Affect: normal affect Assessment and Plan Assessment & Plan (1) Preoperative examination: Code(s): Z01.818 - Encounter for other preprocedural examination Plan: 63 year oldlady here for pre-op clearance for cataract extraction with IOL, with penetrating keratoplasty on the left eye, requested by Dr. Gomez, scheduled for 02/09/2024. . Pre-op exam is unremarkable. Has history of sinus bradycardia, with 3 day Holter monitor done 08/17/2023 showing normal sinus rhythm as a baseline with an average heart rate of 64 beats per minute, frequent sinus bradycardia with 42% of time heart rate below 60 beats per minute with no significant pauses. Patient with low cardiac risk index for proposed surgery (2) Essential hypertension: Code(s): I10 - Essential (primary) hypertension Plan: Blood pressure well controlled (3) Morbid obesity with BMI of 45.0-49.9, adult: Code(s): E66.01 - Morbid (severe) obesity due to excess calories; Z68.42 - Body mass index [BMI] 45.0-49.9, adult Plan: Recommend losing weight review diet and exercise, try Mediterranean diet, limit foods high in fat, sugar, and calories, eat slowly, pay attention to portion sizes, plan your meals ahead of time, start regular physical activity 150 minutes of moderate intensity exercise or 90 minutes/week of vigorous exercise. (4) CHAZ (obstructive sleep apnea): Code(s): G47.33 - Obstructive sleep apnea (adult) (pediatric) Plan: HAS BEEN USING CPAP VERY REGULARLY AND CLAIMS TO BE SLEEPING WELL AT NIGHT. (5) Restless legs syndrome: Code(s): G25.81 - Restless legs syndrome Plan: Controlled with ropinirole (6) Depression: Comment: sees Dr Silvia Macias , depression under control with present treatment Code(s): F32.9 - Major depressive disorder, single episode, unspecified Qualifiers: Depression Type: major depressive disorder Major depression recurrence: recurrent Active/Remission status: in full remission Qualified Code(s): F33.42 - Major depressive disorder, recurrent, in full remission (7) Keratoconus of both eyes: Comment: ff'd by Dr Gomez Code(s): H18.603 - Keratoconus, unspecified, bilateral Coding Level of Care Code Est Pt Level 4 (88337) Diagnoses Preoperative examination Z01.818 Essential hypertension I10 Morbid obesity with BMI of 45.0-49.9, adult E66.01; Z68.42 CHAZ (obstructive sleep apnea) G47.33 Restless legs syndrome G25.81 Recurrent major depressive disorder, in full remission F33.42 Depression Type: major depressive disorder Major depression recurrence: recurrent Active/Remission status: in full remission Keratoconus of both eyes H18.603 Additional Codes TAI-7 Assessment Billing - TIA-7 Assessment Tool: TIA-7 Assessment 35257 ([id number])
[2024-01-26 09:03] VITALS: BP 132/72; PULSE 60; O2SAT 98; BMI 46.5
== END 2024-01-26 12:34 | disposition home or self-care (01) ==
PROVIDERS: PCP Internal Medicine; Visit Provider Internal Medicine
DX: I10 Essential (primary) hypertension (principal); E66.01 Morbid (severe) obesity due to excess calories; Z68.42 Body mass index [BMI] 45.0-49.9, adult; F33.42 Major depressive disorder, recurrent, in full remission; Z01.818 Encounter for other preprocedural examination; G47.33 Obstructive sleep apnea (adult) (pediatric); G25.81 Restless legs syndrome; H18.603 Keratoconus, unspecified, bilateral
CPT/HCPCS: 99214

== ENCOUNTER 2024-02-17 13:43 | Outpatient (AMB) | payer MEDICARE, OTHER, SELFPAY ==
[2024-02-17 13:51] VITALS: BP 140/72; PULSE 58; BMI 47.3
--- NOTE | 2024-02-17 13:51 | MHC.OFFVIS ---
Vital Signs 02/17/24 13:51 Height 5 ft 1 in Weight 250 lb 7.122 oz BMI 47.3 BP 140/72 H Blood Pressure Location Lt brachial Position Sitting Pulse 58 Pulse Source Pulse Oximeter Intake Visit Reasons: follow up 6 month after holter Pharmacy Consultant Required: No Allergies latex [LATEX] Allergy (Mild, Verified 02/17/24 13:53) RASH Medication List - Last Reconciled 02/17/24 by Steph Crenshaw, [employer] bupropion HCl XL 300 mg PO DAILY clonidine HCl 0.1 mg PO BEDTIME escitalopram oxalate 20 mg PO DAILY ropinirole 1 mg (2 x 0.5 mg) PO BEDTIME tobramycin-dexamethasone 0.3-0.1 % drps ophthalmic (eye) HPI HPI follow up 6 month after holter: Details: Linda is a 63-year-old female with past medical history of morbid obesity, hypertension, obstructive sleep apnea with CPAP use, sinus bradycardia who presents for follow-up. Today she reports that she recently underwent a left corneal transplant. She is still recovering from that. Since last visit she continues to have some fatigue and admits to being mostly sedentary. She has been having issues with her right knee which limits her activity level. She denies chest discomfort, shortness of breath, palpitations, presyncope, syncope, PND, orthopnea or edema. Has been on clonidine for a long time, no recent changes to dose. Takes meds as directed. [facility] Medical History Cornea transplant recipient Carpal tunnel syndrome on both sides Restless legs syndrome CHAZ (obstructive sleep apnea) Sinus bradycardia Intermittent lightheadedness Vitamin D deficiency Essential hypertension Hypertrophic toenail Lactose intolerance Seasonal allergies Postmenopausal bleeding Tear of lateral meniscus of right knee Patellofemoral syndrome of right knee Morbid obesity IBS (irritable bowel syndrome) Bile salt-induced diarrhea Restless leg syndrome Depression Keratoconus of both eyes Surgical History History of tubal ligation History of laparoscopic cholecystectomy Family History Father Hodgkins disease Son No problems noted. Son No problems noted. Daughter No problems noted. Other Mental health disorder Social History Housing: House Alcohol intake: current Alcohol intake frequency: holidays/special occasions only Patient Tobacco Use Status: Never used Tobacco e-Cigarette/Vaping Use: Never Used Current occupational status: retired Cognitive needs: No Hearing needs: No Vision needs: No Review of Systems Const All systems reviewed & are unremarkable except as noted in HPI and below ENT Denies dizziness Card Denies chest pain, Denies chest pain at rest, Denies chest pain with activity, Denies rapid heart rate, Denies pedal edema, Denies edema, Denies leg edema, Denies lightheadedness, Denies palpitations, Denies dyspnea, Denies dyspnea on exertion and Denies orthopnea Resp Denies cough, Denies dyspnea and Denies dyspnea on exertion GI Denies hematochezia and Denies change in stool character Musc Denies abnormal gait, Denies limited range of motion, Denies muscle cramps, Denies muscle weakness, Denies numbness, Denies radiating pain into limb, Denies stiffness and Denies tingling Neuro Denies abnormal gait, Denies dizziness, Denies numbness and Denies tingling Endo Denies palpitations Physical Exam Vital Signs: Last Vital Signs Pulse 58 02/17/24 13:51 BP 140/72 H 02/17/24 13:51 BMI result Body Mass Index 47.3 Const General: cooperative, healthy appearing, comfortable and no acute distress Orientation/consciousness: patient oriented x3 Neck Neck: Yes normal visual inspection and Yes no JVD Resp Effort & Inspection: normal respiratory effort Auscultation: clear to auscultation bilaterally, no crackles, no rales, no rhonchi and no wheezes Cardio Jugular venous distension: no JVD Rate: regular rate Rhythm: regular rhythm Heart sounds: S1 normal heart sound present, S2 normal heart sound present, no murmurs and no rubs Neuro General: patient oriented x3 Extrem General: Yes normal to inspection and No no pedal edema Psych Appearance: grossly normal Mental Status: mental status grossly normal Speech and movement: Normal speech and movement present Assessment & Plan Assessment & Plan (1) Sinus bradycardia: Code(s): R00.1 - Bradycardia, unspecified Category: Medical Plan: History of sinus bradycardia, asymptomatic. Last Holter monitor done 12/26/2021 showed average heart rate 64, lowest heart rate 39, during hour of sleep, rare PACs and PVCs.. Echocardiogram done 07/27/2022 was normal study. She is on low-dose clonidine which she takes at night and states that she has been on this dose long-term. She is not on any other medications that cause bradycardia. She denies presyncope, syncope, falls. She has been experiencing some fatigue and admits to being mostly sedentary. EKG done last visit showed sinus bradycardia, heart rate 41. I ambulated her in the hallway using sat monitor and heart rate gita to 79 beats per minute. Holter monitor done on 08/17/2023 for 3 days shows sinus rhythm with average heart rate 64, 42% of the time heart rate less than 60. Today pulse 58 at rest. She is unable to do an exercise stress test to assess for chronotropic competence due to her knee pain and inability to walk on a treadmill. No indication for pacemaker placement at this time. Avoid rate slowing medications. Cardiology office visit in 6 months, sooner if needed (2) Essential hypertension: Code(s): I10 - Essential (primary) hypertension Category: Medical Plan: Normal range at present. No med changes made (3) CHAZ (obstructive sleep apnea): Code(s): G47.33 - Obstructive sleep apnea (adult) (pediatric) Category: Medical Plan: Patient tells me she has not been able to wear her CPAP mask since February 08 as she has to wear a patch on her eye. Once her cornea transplant has fully healed she will resume CPAP therapy. Her blood pressure is mildly elevated today and it may be contributed to not wearing CPAP and having interrupted sleep. Plan Time spent on chart review, documentation, interview and assessment Coding Level of Care Code Est Pt Level 4 (93891) Diagnoses Sinus bradycardia R00.1 Essential hypertension I10 CHAZ (obstructive sleep apnea) G47.33 Time Spent (min) 28
== END 2024-02-17 14:28 | disposition home or self-care (01) ==
PROVIDERS: PCP Internal Medicine; Visit Provider Nurse Practitioner Family
DX: R00.1 Bradycardia, unspecified (principal); I10 Essential (primary) hypertension; G47.33 Obstructive sleep apnea (adult) (pediatric)
CPT/HCPCS: 99214

== ENCOUNTER → 2024-02-17 13:43 | Outpatient (BNVA) | payer MEDICARE, OTHER, SELFPAY | PROVIDERS: PCP Internal Medicine; Visit Provider Nurse Practitioner Family | DX: R00.1 Bradycardia, unspecified (principal); I10 Essential (primary) hypertension; G47.33 Obstructive sleep apnea (adult) (pediatric) | CPT/HCPCS: 99212 ==

== ENCOUNTER 2024-06-19 10:49 | Outpatient (AMB) | payer MEDICARE, SELFPAY ==
[2024-06-19 10:59] VITALS: BP 120/74; PULSE 60; O2SAT 97; BMI 46.6
--- NOTE | 2024-06-19 10:59 | MHC.OFFVIS ---
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 SHE IS HERE AFTER 6 MONTHS FOR. HER ROUTINE FOLLOW-UP . USES CPAP VERY REGULARLY EVERY NIGHT, WITH NASAL PILLOWS AND SLEEPS WELL. HAS NOT BEEN ABLE TO LOSE WEIGHT, BECAUSE SHE DOES NOT REALLY CONCENTRATE ON DOING ANYTHING TO LOSE WEIGHT, TAKES CARE OF HER SICK MOTHER AND . SHE IS ALSO BEING TREATED FOR CHRONIC DEPRESSIVE. [facility] Medical History Cornea transplant recipient Carpal tunnel syndrome on both sides Restless legs syndrome NOLAN (obstructive sleep apnea) Sinus bradycardia Intermittent lightheadedness Vitamin D deficiency Essential hypertension Hypertrophic toenail Lactose intolerance Seasonal allergies Postmenopausal bleeding Tear of lateral meniscus of right knee Patellofemoral syndrome of right knee Morbid obesity IBS (irritable bowel syndrome) Bile salt-induced diarrhea Restless leg syndrome Depression Keratoconus of both eyes Surgical History History of tubal ligation History of laparoscopic cholecystectomy Family History Father Hodgkins disease Son No problems noted. Son No problems noted. Daughter No problems noted. Other Mental health disorder Social History Housing: House Alcohol intake: current Alcohol intake frequency: holidays/special occasions only Patient Tobacco Use Status: Never used Tobacco e-Cigarette/Vaping Use: Never Used Current occupational status: retired Cognitive needs: No Hearing needs: No Vision needs: No Review of Systems Const All systems reviewed & are unremarkable except as noted in HPI and below Reports fatigue Eyes Reports no additional complaints ENT Reports no additional complaints, Denies vertigo and Denies dizziness Card Denies chest pain, Denies irregular heart rhythm, Denies leg edema and Reports slow heart rate Resp Reports no additional complaints GI Reports GI cramping and Reports dyspepsia Reports no additional complaints Musc Reports back pain and Reports arthralgias (KNEES) Skin/Breast Reports system reviewed and no additional complaints, except as documented Neuro Denies vertigo, Denies dizziness, Denies focal weakness and Reports restless legs Psych Reports no additional complaints Endo Reports no additional complaints and Reports fatigue Physical Exam Vital Signs: Last Vital Signs Pulse 60 06/19/24 10:59 BP 120/74 06/19/24 10:59 Pulse Ox 97 06/19/24 10:59 Oxygen Delivery Method Room Air 06/19/24 10:59 BMI result Body Mass Index 46.6 THE PATIENT IS GROSSLY OBESE, WITH A ROUND FACE. Const General: comfortable, no acute distress, alert and awake Orientation/consciousness: patient oriented x3 HEENT Head: Yes normal to inspection General nose exam: No nasal polyps present and No nasal discharge present Face and sinus: Yes sinuses nontender Mouth: oropharynx normal Throat: No posterior oropharynx normal (NARROW AND CROWDED, MALLAMPATI CLASS 3) Eyes General: appearance normal, both eyes and all related structures Neck Neck: Yes normal visual inspection, Yes no lymphadenopathy, Yes trachea midline, Yes no JVD and Yes other (NECK CIRCUMFERENCE 14-1/2 INCHES) Thyroid: Thyroid normal Chest Chest palpation & inspection: normal inspection of the chest, normal palpation of entire chest wall and no tenderness Resp Other: PERCUSSION NOTE RESONANT, BREATH SOUNDS ARE DIMINISHED OVER THE LOWER LOBES, BUT EQUAL ON BOTH SIDES NO WHEEZES RHONCHI OR CREPITATIONS ARE HEARD. Cardio Palpation: normal PMI Rate: regular rate Rhythm: regular rhythm Heart sounds: no gallops and no murmurs GI Palpation (GI): Soft to palpation, nontender, No hepatosplenomegaly present and no masses Auscultation: normal bowel sounds Back/Spine/Pelvis Thoracic/Lumbar Spine: thoracic and lumbar spine normal to inspection and thoraco-lumbar ROM limited Skin General skin exam: no rashes or lesions noted Neuro General: patient oriented x3 and no focal motor deficits Cranial nerves: Yes CN's II-XII intact bilaterally Extrem Other: RIGHT SHOULDER AND RIGHT KNEE ARE PAINFUL General: Yes normal to inspection, Yes no clubbing, cyanosis or edema (LOWER EXTREMITIES ARE VERY BULKY, BUT WITHOUT PITTING EDEMA.) and Yes no calf tenderness Psych Appearance: grossly normal and well kempt Speech and movement: Normal speech and movement present Results Reviewed Results Reviewed: COMPLIANCE REPORT IS REVIEWED. SHE HAS USED 30/.30 NIGHTS, 1 00% OF THE TIME AVERAGE USE IT PER NIGHT 6 HOURS 4.1 MINUTES PRESSURE USED MOSTLY. 11-12 CM . NO SIGNIFICANT AIR LEAK AND RESIDUAL AHI 0.5 Assessment & Plan Assessment & Plan (1) Morbid obesity with BMI of 45.0-49.9, adult: Comment: BMI=46.7 SHE IS CHRONICALLY OBESE , WITH A ROUND FACE AND SH.ORT NECK THERE HAS BEEN NO CHANGE IN HER WEIGHT. Code(s): E66.01 - Morbid (severe) obesity due to excess calories; Z68.42 - Body mass index [BMI] 45.0-49.9, adult Category: Medical Plan: , DISCUSS ABOUT THE WEIGHT ENCOURAGED HER TO GO ON LOWCARB DIET AND MAKE A HABIT OF WALKING AT LEAST FOR 30 MINUTES EVERY DAY. (2) NOLAN (obstructive sleep apnea): Comment: HER OBSTRUCTIVE SLEEP APNEA IS WELL TREATED WITH THE CPAP SHE USES IT VERY REGULARLY. COMPLIANC.E IS GOOD Code(s): G47.33 - Obstructive sleep apnea (adult) (pediatric) Category: Medical Plan: COMMENDED FOR GOOD COMPLIANCE AND ENCOURAGED TO KEEP ON USING CPAP EVERY NIGHT. (3) Restless leg syndrome: Comment: RESTLESS LEG SYNDROME,( MOST LIKELY SECONDARY TO USE OF ESCITALOPRAM AN SSRI ) , SYMPTOMS CONTROLLED WITH USE OF ROPINIROLE 1 MG AT BEDTIME. Code(s): G25.81 - Restless legs syndrome Category: Medical Plan: CONTINUE ROPINIROLE 1 MG AT BEDTIME Coding Level of Care Code Est Pt Level 3 (65092) Diagnoses Morbid obesity with BMI of 45.0-49.9, adult E66.01; Z68.42 NOLAN (obstructive sleep apnea) G47.33 Restless leg syndrome G25.81
== END 2024-06-19 11:19 | disposition home or self-care (01) ==
PROVIDERS: PCP Internal Medicine; Visit Provider Internal Medicine
DX: E66.01 Morbid (severe) obesity due to excess calories (principal); Z68.42 Body mass index [BMI] 45.0-49.9, adult; G47.33 Obstructive sleep apnea (adult) (pediatric); G25.81 Restless legs syndrome
CPT/HCPCS: 99213

== ENCOUNTER → 2024-06-19 10:49 | Outpatient (BNVA) | payer MEDICARE, OTHER, SELFPAY | PROVIDERS: PCP Internal Medicine; Visit Provider Internal Medicine | DX: G47.33 Obstructive sleep apnea (adult) (pediatric) (principal); G25.81 Restless legs syndrome; E66.01 Morbid (severe) obesity due to excess calories; Z68.42 Body mass index [BMI] 45.0-49.9, adult | CPT/HCPCS: 99212 ==

== ENCOUNTER 2024-08-21 10:48 | Outpatient (AMB) | payer MEDICARE, SELFPAY ==
--- NOTE | 2024-08-21 11:04 | AM.OFFWIN_ITS ---
Intake Vital Signs 08/21/24 11:06 Weight 245 lb BP 126/90 H Blood Pressure Location Rt brachial Position Sitting Pulse 54 Pulse Source Pulse Oximeter Pulse Oximetry (%) 98 Oxygen Delivery Method Room Air Intake Visit Reasons: EP-lower back pain Intake Note: Patient here for lower back/hip pain that has been present since Wednesday night. Patient Tobacco Use Status: Never used Tobacco Allergies latex [LATEX] Allergy (Mild, Verified 08/21/24 11:05) RASH Do you need a note to return to daycare/school/sports/work: No HPI HPI Comments History of Present Illness Details Patient is a 64-year-old female complaining 5 days of worsening low back pain that radiates down into the backside of her right leg. She states that it started Wednesday night when they were watching a movie at a friend's house. She tells me she went to stand up and immediately felt pain, she denies any injury or trauma to her low back. She went home and you just a wedge under her legs and took 1 of her 's muscle relaxers which seemed to help a little bit temporarily. She tells me she can feel something spasming in the low back on the right side. She has also been using ibuprofen and a leave with no improvement in her symptoms, she denies any loss of control of her bladder or bowels. [facility] Medical History Cornea transplant recipient Carpal tunnel syndrome on both sides Restless legs syndrome CHAZ (obstructive sleep apnea) Sinus bradycardia Intermittent lightheadedness Vitamin D deficiency Essential hypertension Hypertrophic toenail Lactose intolerance Seasonal allergies Postmenopausal bleeding Tear of lateral meniscus of right knee Patellofemoral syndrome of right knee Morbid obesity IBS (irritable bowel syndrome) Bile salt-induced diarrhea Restless leg syndrome Depression Keratoconus of both eyes Surgical History History of tubal ligation History of laparoscopic cholecystectomy Family History Father Hodgkins disease Son No problems noted. Son No problems noted. Daughter No problems noted. Other Mental health disorder Social History Housing: House Alcohol intake: current Alcohol intake frequency: holidays/special occasions only Patient Tobacco Use Status: Never used Tobacco e-Cigarette/Vaping Use: Never Used Current occupational status: retired Cognitive needs: No Hearing needs: No Vision needs: No Review of Systems Const All systems reviewed & are unremarkable except as noted in HPI and below Physical Exam Vital Signs: Last Vital Signs Pulse 54 08/21/24 11:06 BP 126/90 H 08/21/24 11:06 Pulse Ox 98 08/21/24 11:06 Oxygen Delivery Method Room Air 08/21/24 11:06 Const General: cooperative, healthy appearing and comfortable Orientation/consciousness: patient oriented x3 HEENT Head: Yes normal to inspection and Yes normocephalic General nose exam: Normal external nose present Face and sinus: Yes normal facial exam Eyes General: appearance normal, both eyes and all related structures Resp Effort & Inspection: normal respiratory effort and able to speak in complete sentences Back/Spine/Pelvis Cervical Spine: cervical ROM normal and No Cervical spine tenderness Thoracic/Lumbar Spine: thoracic and lumbar spine normal to inspection, pain with thoraco-lumbar ROM, paraspinal muscle tenderness on the right in the lower thoracic, in the upper lumbar and in the mid lumbar, No thoracic spinal tenderness, No lumbar spinal tenderness and straight leg raise positive right at 50 degrees Neuro General: patient oriented x3 Extrem Other: Straight leg raise test negative on right; Straight leg raise test negative on left; Reflexes normal ankle and knee bilaterally; motor strength normal bilaterally Assessment & Plan Assessment & Plan (1) Low back pain with right-sided sciatica: Code(s): M54.41 - Lumbago with sciatica, right side Qualifiers: Chronicity: acute Back pain laterality: right Qualified Code(s): M54.41 - Lumbago with sciatica, right side Plan: Recommended she continue NSAIDs, sent prednisone taper and muscle relaxers to pharmacy. Recommended against drinking alcohol or driving a motor vehicle while taking the cyclobenzaprine. If she loses control of her bladder or bowels, she was educated to go to the emergency room. Medications: New cyclobenzaprine 5 mg PO Q8H PRN 10 tabs 0RF Muscle Spasm prednisone Day 1&2 take 4 tablets, day 3&4 take 3 tablets, day 5&6 take 2 tablets, days 7-9 take 1 tablet. 10 mg PO DIRECTED 21 ea 0RF Coding Level of Care Code Est Pt Level 3 (14704) Diagnoses Acute right-sided low back pain with right-sided sciatica M54.41 Chronicity: acute Back pain laterality: right
[2024-08-21 11:06] VITALS: BP 126/90; PULSE 54; O2SAT 98
== END 2024-08-21 11:21 | disposition home or self-care (01) ==
PROVIDERS: PCP Internal Medicine; Visit Provider Physician Assistant
DX: M54.41 Lumbago with sciatica, right side (principal)

== ENCOUNTER → 2024-08-21 10:48 | Outpatient (BNVA) | payer MEDICARE, SELFPAY | PROVIDERS: PCP Internal Medicine; Visit Provider Physician Assistant | DX: M54.41 Lumbago with sciatica, right side (principal) | CPT/HCPCS: 99212 ==

== ENCOUNTER 2024-08-31 13:24 | Outpatient (AMB) | payer MEDICARE, SELFPAY ==
[2024-08-31 13:33] VITALS: BP 148/72; PULSE 47; BMI 48.2
--- NOTE | 2024-08-31 13:33 | A.OFFVIS_ITS ---
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 Today she reports that she has been noticing episodes of rapid heart palpitations. She can feel her heart beating fast for a few minutes at a time. No lightheadedness, presyncope, syncope, falls. She has been noticing some heartburn type sensation that occurs at rest and with activity. She is concerned this may be her heart. She denies shortness of breath, PND, orthopnea or edema. She admits to significant stressors in her life recently. She previously had reported knee pain but states it is much better these days. She feels she could walk on a treadmill for a stress test. She has been compliant with her CPAP mask. Has been on clonidine for a long time, no recent changes to dose. Takes meds as directed. [facility] Medical History Cornea transplant recipient Carpal tunnel syndrome on both sides Restless legs syndrome CHAZ (obstructive sleep apnea) Sinus bradycardia Intermittent lightheadedness Vitamin D deficiency Essential hypertension Hypertrophic toenail Lactose intolerance Seasonal allergies Postmenopausal bleeding Tear of lateral meniscus of right knee Patellofemoral syndrome of right knee Morbid obesity IBS (irritable bowel syndrome) Bile salt-induced diarrhea Restless leg syndrome Depression Keratoconus of both eyes Surgical History History of tubal ligation History of laparoscopic cholecystectomy Family History Father Hodgkins disease Son No problems noted. Son No problems noted. Daughter No problems noted. Other Mental health disorder Social History Housing: House Alcohol intake: current Alcohol intake frequency: holidays/special occasions only Patient Tobacco Use Status: Never used Tobacco e-Cigarette/Vaping Use: Never Used Current occupational status: retired Cognitive needs: No Hearing needs: No Vision needs: No Review of Systems Const All systems reviewed & are unremarkable except as noted in HPI and below ENT Denies dizziness Card Denies chest pain, Denies chest pain at rest, Denies chest pain with activity, Reports rapid heart rate, Denies pedal edema, Denies edema, Denies leg edema, Denies lightheadedness, Denies palpitations, Denies dyspnea, Reports dyspnea on exertion and Denies orthopnea Resp Denies cough, Denies dyspnea and Reports dyspnea on exertion GI Denies hematochezia and Denies change in stool character Musc Denies abnormal gait, Denies limited range of motion, Denies muscle cramps, Denies muscle weakness, Denies numbness, Denies radiating pain into limb, Denies stiffness and Denies tingling Neuro Denies abnormal gait, Denies dizziness, Denies numbness and Denies tingling Endo Denies palpitations Physical Exam Vital Signs: Last Vital Signs Pulse 47 L 08/31/24 13:33 BP 148/72 H 08/31/24 13:33 BMI result Body Mass Index 48.2 Const Other: morbidly obese General: cooperative, healthy appearing, comfortable and no acute distress Orientation/consciousness: patient oriented x3 Neck Neck: Yes normal visual inspection Resp Effort & Inspection: normal respiratory effort Auscultation: clear to auscultation bilaterally, no crackles, no rales, no rhonchi and no wheezes Cardio Jugular venous distension: no JVD Rate: regular rate Rhythm: regular rhythm Heart sounds: S1 normal heart sound present, S2 normal heart sound present, no murmurs and no rubs Neuro General: patient oriented x3 Extrem General: Yes normal to inspection Psych Appearance: grossly normal Mental Status: mental status grossly normal Speech and movement: Normal speech and movement present Office Procedures EKG Details: Today, read by me, sinus bradycardia, left axis deviation, nonspecific T-wave abnormality, rate 47, QTC 346 millisecond [id number], Complete Assessment & Plan Assessment & Plan (1) Sinus bradycardia: Code(s): R00.1 - Bradycardia, unspecified Category: Medical Plan: History of sinus bradycardia, asymptomatic. Holter monitor done 12/26/2021 showed average heart rate 64, lowest heart rate 39, during hour of sleep, rare PACs and PVCs. Echocardiogram done 07/27/2022 was normal study. She is on low-dose clonidine which she takes at night and states that she has been on this dose long-term. She is not on any other medications that cause bradycardia. She denies presyncope, syncope, falls. She admits to being mostly sedentary. Holter monitor done on 08/17/2023 for 3 days shows sinus rhythm with average heart rate 64, 42% of the time heart rate less than 60. EKG done today shows sinus bradycardia, heart rate 47. I ambulated her in the hallway using sat monitor and heart rate gita to 90 beats per minute. She is reporting some rapid heartbeats at times lasting minutes, also some heart burn at rest and during activity.. She believe she would be able to walk on a treadmill. Will check a exercise stress test to assess for chronotropic competence, exercise-induced arrhythmia and ischemia. Will recheck Holter monitor to assess average heart rate and look for any rapid arrhythmias. Plan to discuss results with her at the time of test. No indication for pacemaker placement at this time. Avoid rate slowing medications. Cardiology office visit in 6 months, sooner if needed (2) Essential hypertension: Code(s): I10 - Essential (primary) hypertension Category: Medical Plan: Mild elevation today. She reports that she has been under high stress. No med changes made at this time. (3) CHAZ (obstructive sleep apnea): Comment: HER OBSTRUCTIVE SLEEP APNEA IS WELL TREATED WITH THE CPAP SHE USES IT VERY REGULARLY. COMPLIANC.E IS GOOD Code(s): G47.33 - Obstructive sleep apnea (adult) (pediatric) Category: Medical Plan: She reports compliance with her CPAP mask. (4) Palpitation: Code(s): R00.2 - Palpitations Category: Medical Plan: Report of rapid heart palpitations as above, lasting seconds to minutes with no lightheadedness, presyncope, syncope. Checking ETT and Holter (5) Chest discomfort: Code(s): R07.89 - Other chest pain Category: Medical Plan: Report of heartburn type sensation. Occurring with activity and at rest. She can not associate it with certain foods. Will be checking exercise stress test to evaluate for ischemia. Signs and symptoms of angina reviewed. Plan Time spent on chart review, documentation, interview and assessment Orders: Orders CA stress test 08/31/24 R07.89 - Other chest pain ECG 3 day holter monitor 08/31/24 R00.1 - Bradycardia, unspecified, R00.2 - Pal pitations Coding Level of Care Code Est Pt Level 4 (19450) Complex EM visit Add On G2211 Diagnoses Sinus bradycardia R00.1 Essential hypertension I10 CHAZ (obstructive sleep apnea) G47.33 Palpitation R00.2 Chest discomfort R07.89 CPT Codes EKG - CPT: 58841-[id number], Complete ([id number]) Time Spent (min) 36
== END 2024-08-31 14:16 | disposition home or self-care (01) ==
LOC: HO.HCS 13:24
PROVIDERS: PCP Internal Medicine; Visit Provider Nurse Practitioner Family
DX: R94.31 Abnormal electrocardiogram [ECG] [EKG] (principal)
CPT/HCPCS: 93010; 99214; G2211

== ENCOUNTER → 2024-08-31 13:24 | Outpatient (BNVA) | payer MEDICARE, SELFPAY | PROVIDERS: PCP Internal Medicine; Visit Provider Nurse Practitioner Family | DX: I10 Essential (primary) hypertension (principal); R00.1 Bradycardia, unspecified; R00.2 Palpitations; R07.89 Other chest pain; G47.33 Obstructive sleep apnea (adult) (pediatric); E66.01 Morbid (severe) obesity due to excess calories; Z68.42 Body mass index [BMI] 45.0-49.9, adult; Z99.89 Dependence on other enabling machines and devices | CPT/HCPCS: 93005; 99212 ==

== ENCOUNTER → 2024-09-25 09:48 | Outpatient (REF) | payer MEDICARE, SELFPAY ==
--- NOTE | 2024-09-25 09:51 | HM_ITS ---
Conclusion: 1. Patient was monitored for total period of 3 days 2. Baseline was normal sinus rhythm with average heart rate of 61 beats per minute 3. No significant pauses noted but frequent sinus bradycardia noted with 49% of the time heart rate below 60 beats per minute 4. Occasional PACs noted with short bursts of SVE, longest lasting 14 beats at 146 beats per minute 5. No patient reported events MTDD
--- NOTE | 2024-09-25 09:51 | CA_ITS ---
Acquisition Time: 2024-09-25 10:33:11 Total Exercise Time: 00:02:26 Test Indications: cp,sb,palpitations Medications: see h Protocol: GWENDOLYN Max HR: 157 BPM 101% of Pred: 155 BPM Max BP: 230/104 mmHG Max Work Load: 4.6 METS Exercise Stress Test with exercise 2 mins 26 secs of Gwendolyn Protocol, achieving 100% MPHR, with moderate SOB requesting to stop, without chest discomfort, with isolated PACs PVCs. With hypertensive and normal chronotropic response to exercise. EKG changes with ST depression inferiorly and in V5, V6 meeting criteria for ischemia; that returned to baseline quickly during recovery. Will order Nuclear Stress Test for further evaluation. Test reviewed with Dr. Leal. Referred By: Steph Crenshaw Overread By: STEPH CRENSHAW
== END ==
LOC: HO.CARD 09:48
PROVIDERS: PCP Internal Medicine; Visit Provider Nurse Practitioner Family
DX: R00.2 Palpitations (principal); R00.1 Bradycardia, unspecified; R79.89 Other specified abnormal findings of blood chemistry
CPT/HCPCS: 93017; 93242

== ENCOUNTER → 2024-09-25 09:51 | Outpatient (BNV) | payer MEDICARE, SELFPAY | PROVIDERS: PCP Internal Medicine; Visit Provider Nurse Practitioner Family | DX: R06.02 Shortness of breath (principal); I49.1 Atrial premature depolarization; I49.3 Ventricular premature depolarization | CPT/HCPCS: 93016; 93018 ==

== ENCOUNTER → 2024-10-31 09:10 | Outpatient (REF) | payer MEDICARE, SELFPAY ==
--- NOTE | ~2024-10-31 | NM_ITS ---
EXERCISE MYOCARDIAL PERFUSION STUDY INDICATION: Abnormal EKG, abnormal stress test TECHNIQUE: The patient was brought in for an exercise perfusion study on 10/31/2024. Patient performed exercise as per Gerry protocol and was injected 40 mCi of sestamibi once target heart rate was achieved. Images were obtained using the SPECT gamma camera interlaced with the gating device. Images were obtained in supine position. Resting perfusion study was performed on 11/02/2024. Patient was administered 40 mCi of sestamibi intravenously at rest. Images were then obtained in supine position. Total DLP 101 mGy-cm. Images were processed with the software and compared side to side in short axis, horizontal long axis and vertical long axis views. FINDINGS: Raw aquisition reviewed. The stress perfusion study showed decreased tracer uptake in the mid anteroseptal wall. Seen with uncorrected as well as CT attenuation corrected images. The gated study shows normal LV systolic function with calculated LVEF of 70%. LV cavity is normal in size. The gated study show some septal hypokinesis more towards the base/midportion. Resting study shows decreased tracer uptake in the mid part of anteroseptal wall. No major change with CT attenuation correction. Gating at rest reveals shows possible basal septal hypokinesis and ejection fraction at 63%. The findings are consistent with fixed perfusion defect in the mid anteroseptal wall. NM/MN cardiolite stress test IMPRESSION: 1. Myocardial perfusion imaging study shows no evidence of ischemia. Fixed mid anteroseptal defect, possible nontransmural infarct versus artifact. 2. Gated LVEF is 70% during stress and 63% during rest. 3. Transient ischemic dilatation not present. EKG component of the test reported separately. Electronically signed by: Jose Walker MD 11/05/2024 01:23 PM [facility] [place]
--- NOTE | 2024-10-31 09:12 | CA_ITS ---
Acquisition Time: 2024-10-31 09:19:39 Total Exercise Time: 00:03:45 Test Indications: Abnormal ECG SB,Abnormal Treadmill Test Medications: BUPROPION Clonidine ESCITALOPRAM Protocol: GERRY Max HR: 160 BPM 103% of Pred: 155 BPM Max BP: 240/104 mmHG Max Work Load: 4.6 METS Exercise Stress Test with exercise 3 mins 34 secs of Gerry Protocol, held at stage 1, achieving 101% MPHR, with reports of modearte SOB and 8/10 chest tightness that resolved quickly in recovery, with isolated PACs, PVCs, atrial runs 3 beats, and one ventricular couplet, with baseline BP at 140/80 that gita to 240/104 with exercise, slowly returned to baseline. With EKG chnages meeting criteria for ischemia- horizontal ST depression inferiorly, and borderline changes V4-V6. In recovery, breathing returned to baseline. Nuclear images pending. Test reviewed with Dr. Walker. Referred By: Steph Crenshaw Electronically Signed By: Bautista Shane
== END ==
LOC: HO.CARD 09:10
PROVIDERS: PCP Internal Medicine; Visit Provider Nurse Practitioner Family
DX: R94.39 Abnormal result of other cardiovascular function study (principal)
CPT/HCPCS: 78452; 93017; A9500; J0280; J2785

== ENCOUNTER → 2024-10-31 09:12 | Outpatient (BNV) | payer MEDICARE, SELFPAY | PROVIDERS: PCP Internal Medicine | DX: R94.31 Abnormal electrocardiogram [ECG] [EKG] (principal); I51.0 Cardiac septal defect, acquired | CPT/HCPCS: 78452; 93016; 93018 ==

== ENCOUNTER 2024-12-13 09:58 | Outpatient (AMB) | payer MEDICARE, SELFPAY ==
[2024-12-13 10:13] VITALS: BP 142/74; PULSE 62; O2SAT 97; BMI 47.5
--- NOTE | 2024-12-13 10:13 | A.OFFVIS_ITS ---
Vital Signs 12/13/24 10:13 Height 5 ft 1 in Weight 251 lb 5.231 oz BMI 47.5 BP 142/74 H Blood Pressure Location Lt brachial Position Sitting Pulse 62 Pulse Source Pulse Oximeter Pulse Oximetry (%) 97 Oxygen Delivery Method Room Air Intake Visit Reasons: nolan Intake Note: pt is here for follow up and states she is doing fine. Environmental Services Project Manager Required: No Allergies latex [LATEX] Allergy (Mild, Verified 12/13/24 10:45) RASH Medication List - Last Reconciled 12/13/24 by Faby Oakes MD bupropion HCl XL 300 mg PO DAILY clonidine HCl 0.1 mg PO BEDTIME escitalopram oxalate 20 mg PO DAILY prednisolone acetate 1% 1 drp ophthalmic-Right QID ropinirole 1 mg (2 x 0.5 mg) PO BID 90 days tobramycin-dexamethasone 0.3-0.1 % drps ophthalmic (eye) Do you need a note to return to daycare/school/sports/work: No HPI HPI nolan: Details: THIS 64 YEARS OLD FEMALE IS HERE FOR 6 MONTHS FOLLOW-UP. SHE IS A CASE OF MORBID. OBESITY AND OBSTRUCTIVE SLEEP APNEA SHE USES CPAP VERY REGULARLY AND SLEEPS GOOD EVERY NIGHT. HAS NO ISSUES. WITH THE CPAP MASK OR MACHINE SHE IS NOT VERY ACTIVE PHYSICALLY AND DURING THIS WINTER MONTHS HAS PUT ON SOME WEIGHT. SHE DOES HAVE HISTORY OF DEPRESSION, AND INCREASED DEPRESSION OR STRESS MAKES HER EAT MORE. [facility] Medical History Cornea transplant recipient Carpal tunnel syndrome on both sides Restless legs syndrome NOLAN (obstructive sleep apnea) Sinus bradycardia Intermittent lightheadedness Vitamin D deficiency Essential hypertension Hypertrophic toenail Lactose intolerance Seasonal allergies Postmenopausal bleeding Tear of lateral meniscus of right knee Patellofemoral syndrome of right knee Morbid obesity IBS (irritable bowel syndrome) Bile salt-induced diarrhea Restless leg syndrome Depression Keratoconus of both eyes Surgical History History of tubal ligation History of laparoscopic cholecystectomy Family History Father Hodgkins disease Son No problems noted. Son No problems noted. Daughter No problems noted. Other Mental health disorder Social History Housing: House Alcohol intake: current Alcohol intake frequency: holidays/special occasions only Patient Tobacco Use Status: Never used Tobacco e-Cigarette/Vaping Use: Never Used Current occupational status: retired Cognitive needs: No Hearing needs: No Vision needs: No Review of Systems Const All systems reviewed & are unremarkable except as noted in HPI and below Reports fatigue Eyes Reports no additional complaints ENT Reports no additional complaints, Denies vertigo and Denies dizziness Card Denies chest pain, Denies irregular heart rhythm, Denies leg edema and Reports slow heart rate Resp Reports no additional complaints GI Reports GI cramping and Reports dyspepsia Reports no additional complaints Musc Reports back pain and Reports arthralgias (KNEES) Skin/Breast Reports system reviewed and no additional complaints, except as documented Neuro Denies vertigo, Denies dizziness, Denies focal weakness and Reports restless legs Psych Reports no additional complaints Endo Reports no additional complaints and Reports fatigue Physical Exam Vital Signs: Last Vital Signs Pulse 62 12/13/24 10:13 BP 142/74 H 12/13/24 10:13 Pulse Ox 97 12/13/24 10:13 Oxygen Delivery Method Room Air 12/13/24 10:13 BMI result Body Mass Index 47.5 THE PATIENT IS GROSSLY OBESE, WITH A ROUND FACE. Const General: comfortable, no acute distress, alert and awake Orientation/consciousness: patient oriented x3 HEENT Head: Yes normal to inspection General nose exam: No nasal polyps present and No nasal discharge present Face and sinus: Yes sinuses nontender Mouth: oropharynx normal Throat: No posterior oropharynx normal (NARROW AND CROWDED, MALLAMPATI CLASS 3) Eyes General: appearance normal, both eyes and all related structures Neck Neck: Yes normal visual inspection, Yes no lymphadenopathy, Yes trachea midline, Yes no JVD and Yes other (NECK CIRCUMFERENCE 14-1/2 INCHES) Thyroid: Thyroid normal Chest Chest palpation & inspection: normal inspection of the chest, normal palpation of entire chest wall and no tenderness Resp Other: PERCUSSION NOTE RESONANT, BREATH SOUNDS ARE DIMINISHED OVER THE LOWER LOBES, BUT EQUAL ON BOTH SIDES NO WHEEZES RHONCHI OR CREPITATIONS ARE HEARD. Cardio Palpation: normal PMI Rate: regular rate Rhythm: regular rhythm Heart sounds: no gallops and no murmurs GI Palpation (GI): Soft to palpation, nontender, No hepatosplenomegaly present and no masses Auscultation: normal bowel sounds Back/Spine/Pelvis Thoracic/Lumbar Spine: thoracic and lumbar spine normal to inspection and thoraco-lumbar ROM limited Skin General skin exam: no rashes or lesions noted Neuro General: patient oriented x3 and no focal motor deficits Cranial nerves: Yes CN's II-XII intact bilaterally Extrem Other: RIGHT SHOULDER AND RIGHT KNEE ARE PAINFUL General: Yes normal to inspection, Yes no clubbing, cyanosis or edema (LOWER EXTREMITIES ARE VERY BULKY, BUT WITHOUT PITTING EDEMA.) and Yes no calf tenderness Psych Appearance: grossly normal and well kempt Speech and movement: Normal speech and movement present Results Reviewed Results Reviewed: COMPLIANCE REPORT FOR THE LAST 30 NIGHTS IS REVIEWED. SHE HAS USED 29/30 NIGHTS., 97% AVERAGE USAGE PER NIGHT 5 HOURS 34 MINUTES. THERE IS NO RESIDUAL AHI. NO SIGNIFICANT LEAK Assessment & Plan Assessment & Plan (1) Morbid obesity with BMI of 40.0-44.9, adult: Comment: HE HAS LONGSTANDING MORBID OBESITY, IN THE LAST 6 MONTHS HAS GAINED SOME WEIGHT, THIS SHE BLAMES IT ON HER STRESS SITUATION IN THE HOUSE. Code(s): E66.01 - Morbid (severe) obesity due to excess calories; Z68.41 - Body mass index [BMI] 40.0-44.9, adult Category: Medical Plan: TALKED TO HER ABOUT WEIGHT MANAGEMENT. CUT DOWN THE PORTIONS OF THE MEALS .EAT MORE VEGGIES AND SOLIDS ALSO ENCOURAGED TO WALK UP TO 2 MILES EVERY DAY. (2) NOLAN (obstructive sleep apnea): Comment: HER OBSTRUCTIVE SLEEP APNEA IS WELL TREATED WITH THE CPAP . SHE USES IT VERY REGULARLY. COMPLIANCE IS GOOD Code(s): G47.33 - Obstructive sleep apnea (adult) (pediatric) Category: Medical Plan: COMMENDED FOR GOOD COMPLIANCE AND ADVISED TO KEEP ON USING THE CPAP AT LEAST FOR 6 HOURS EVERY NIGHT. Coding Level of Care Code Est Pt Level 3 (13553) Diagnoses Morbid obesity with BMI of 40.0-44.9, adult E66.01; Z68.41 NOLAN (obstructive sleep apnea) G47.33
== END 2024-12-13 10:45 | disposition home or self-care (01) ==
PROVIDERS: PCP Internal Medicine; Visit Provider Internal Medicine
DX: E66.01 Morbid (severe) obesity due to excess calories (principal); Z68.41 Body mass index [BMI] 40.0-44.9, adult; G47.33 Obstructive sleep apnea (adult) (pediatric)
CPT/HCPCS: 99213

== ENCOUNTER → 2024-12-13 09:58 | Outpatient (BNVA) | payer MEDICARE, SELFPAY | PROVIDERS: PCP Internal Medicine; Visit Provider Internal Medicine | DX: G47.33 Obstructive sleep apnea (adult) (pediatric) (principal); E66.01 Morbid (severe) obesity due to excess calories; Z99.89 Dependence on other enabling machines and devices; Z68.42 Body mass index [BMI] 45.0-49.9, adult | CPT/HCPCS: 99212 ==

== ENCOUNTER 2025-02-27 13:41 | Outpatient (REF) | payer MEDICARE, SELFPAY | END 2025-02-27 13:42 | disposition home or self-care (01) | LOC: HO.MAMMO 13:41 | PROVIDERS: PCP Internal Medicine; Visit Provider Internal Medicine | DX: Z12.31 Encounter for screening mammogram for malignant neoplasm of breast (principal) | CPT/HCPCS: 77063; 77067 ==

== ENCOUNTER → 2025-02-27 13:45 | Outpatient (BNV) | payer MEDICARE, SELFPAY | PROVIDERS: PCP Internal Medicine; Visit Provider Internal Medicine | DX: Z12.31 Encounter for screening mammogram for malignant neoplasm of breast (principal) | CPT/HCPCS: 77063; 77067 ==

== ENCOUNTER 2025-03-08 13:32 | Outpatient (AMB) | payer MEDICARE, SELFPAY ==
[2025-03-08 13:50] VITALS: BP 142/80; PULSE 50; BMI 47.6
--- NOTE | 2025-03-08 13:50 | A.OFFVIS_ITS ---
Vital Signs 03/08/25 13:50 Height 5 ft 1 in Weight 251 lb 12.286 oz BMI 47.6 BP 142/80 H Blood Pressure Location Lt brachial Position Sitting Pulse 50 Pulse Source Pulse Oximeter Intake Visit Reasons: 6m s/p holter/stress test [place] Operator Required: No Allergies latex [LATEX] Allergy (Mild, Verified 03/08/25 13:55) RASH Medication List - Last Reconciled 03/08/25 by Steph Crenshaw, LICENSED HOME INSPECTOR-C bupropion HCl XL 300 mg PO DAILY clonidine HCl 0.1 mg PO BEDTIME escitalopram oxalate 20 mg PO DAILY prednisolone acetate 1% 1 drp ophthalmic-Right QID ropinirole 1 mg (2 x 0.5 mg) PO BID 90 days tobramycin-dexamethasone 0.3-0.1 % drps ophthalmic (eye) HPI HPI 6m s/p holter/stress test: Details: Linda is a 64-year-old female with past medical history of morbid obesity, hypertension, obstructive sleep apnea with CPAP use, sinus bradycardia who presents for follow-up after recent nuclear stress test and Holter monitor. Today she reports doing well overall since her last visit in August. She has not been bothered by recent heart palpitations. No lightheadedness, presyncope, syncope, falls. She no longer has a heartburn type sensation. No other types of chest discomfort. She denies shortness of breath, PND, orthopnea or edema. She feels her left leg is more swollen than her right, nontender. She has been compliant with her CPAP mask. Has been on clonidine for a long time, no recent changes to dose. Takes meds as directed. [facility] Medical History Cornea transplant recipient Carpal tunnel syndrome on both sides Restless legs syndrome CHAZ (obstructive sleep apnea) Sinus bradycardia Intermittent lightheadedness Vitamin D deficiency Essential hypertension Hypertrophic toenail Lactose intolerance Seasonal allergies Postmenopausal bleeding Tear of lateral meniscus of right knee Patellofemoral syndrome of right knee Morbid obesity IBS (irritable bowel syndrome) Bile salt-induced diarrhea Restless leg syndrome Depression Keratoconus of both eyes Surgical History History of tubal ligation History of laparoscopic cholecystectomy Family History Father Hodgkins disease Son No problems noted. Son No problems noted. Daughter No problems noted. Other Mental health disorder Social History Housing: House Alcohol intake: current Alcohol intake frequency: holidays/special occasions only Patient Tobacco Use Status: Never used Tobacco e-Cigarette/Vaping Use: Never Used Current occupational status: retired Cognitive needs: No Hearing needs: No Vision needs: No Review of Systems Const All systems reviewed & are unremarkable except as noted in HPI and below ENT Denies dizziness Card Denies chest pain, Denies chest pain at rest, Denies chest pain with activity, Denies rapid heart rate, Denies pedal edema, Denies edema, Denies leg edema, Denies lightheadedness, Denies palpitations, Denies dyspnea, Reports dyspnea on exertion and Denies orthopnea Resp Denies cough, Denies dyspnea and Reports dyspnea on exertion GI Denies hematochezia and Denies change in stool character Musc Denies abnormal gait, Denies limited range of motion, Denies muscle cramps, Denies muscle weakness, Denies numbness, Denies radiating pain into limb, Denies stiffness and Denies tingling Neuro Denies abnormal gait, Denies dizziness, Denies numbness and Denies tingling Endo Denies palpitations Physical Exam Vital Signs: Last Vital Signs Pulse 50 03/08/25 13:50 BP 142/80 H 03/08/25 13:50 BMI result Body Mass Index 47.6 Const Other: morbidly obese General: cooperative, healthy appearing, comfortable and no acute distress Orientation/consciousness: patient oriented x3 Neck Neck: Yes normal visual inspection Resp Effort & Inspection: normal respiratory effort Auscultation: clear to auscultation bilaterally, no crackles, no rales, no rhonchi and no wheezes Cardio Jugular venous distension: no JVD Rate: regular rate Rhythm: regular rhythm Heart sounds: S1 normal heart sound present, S2 normal heart sound present, no murmurs and no rubs Neuro General: patient oriented x3 Extrem General: Yes normal to inspection Psych Appearance: grossly normal Mental Status: mental status grossly normal Speech and movement: Normal speech and movement present Assessment & Plan Assessment & Plan (1) Sinus bradycardia: Code(s): R00.1 - Bradycardia, unspecified Category: Medical Plan: History of sinus bradycardia, asymptomatic. Holter monitor done on 08/17/2023 for 3 days shows sinus rhythm with average heart rate 64, 42% of the time heart rate less than 60. EKG done last visit shows sinus bradycardia, heart rate 47. Pulse 50 on examination today. Exercise stress test done 09/25/2024 did show normal chronotropic competence to activity reaching 100% MPHR. Continue to avoid rate slowing medications. She is on clonidine low-dose which has been long-term with no recent med adjustments. No indication for pacemaker placement. Cardiology office visit in 6 months, sooner if needed (2) Essential hypertension: Code(s): I10 - Essential (primary) hypertension Category: Medical Plan: Blood pressure goal less than 130/80. Mild elevation today. Reviewed low-salt diet, need for weight loss. No med changes made at this time. (3) CHAZ (obstructive sleep apnea): Comment: HER OBSTRUCTIVE SLEEP APNEA IS WELL TREATED WITH THE CPAP . SHE USES IT VERY REGULARLY. COMPLIANCE IS GOOD Code(s): G47.33 - Obstructive sleep apnea (adult) (pediatric) Category: Medical Plan: She reports compliance with her CPAP mask. (4) Palpitation: Code(s): R00.2 - Palpitations Category: Medical Plan: On last visit reported brief rapid heart palpitations, lasting seconds to min utes with no lightheadedness, presyncope, syncope. Exercise stress test showed isolated PACs and PVCs. Holter monitor did show occasional PACs and short bursts of SVE, longest 14 beats at 146 beats per minute. This is likely what she is feeling for palpitations. Recommended caffeine reduction, maintaining good hydration, getting adequate rest. (5) Chest discomfort: Code(s): R07.89 - Other chest pain Category: Medical Plan: Prior Report of heartburn type sensation that occurred at rest and with activity. Exercise stress test was inconclusive due to poor exercise capacity. She then underwent a nuclear stress test 10/31/2024 which showed no evidence of ischemia, fixed mid anterior septal defect, possible nontransmural infarct versus artifact. Currently no chest discomfort however she does have some shortness of breath with exertion. CTA of the coronary arteries is pending. Plan to call her with results. (6) Abnormal nuclear stress test: Code(s): R94.39 - Abnormal result of other cardiovascular function study Category: Medical Plan: As above Plan Time spent on chart review, documentation, interview and assessment Patient was informed and verbally consented to the use of an ambient scribe for clinic note documentation during this visit. During consultation, I explained the findings of the stress tests and the absence of significant ischemia. I clarified the differences in breathing patterns due to CPAP usage, emphasizing the body's required adjustment to positive pressure during sleep. I assessed the patient's medication regimen, especially clonidine, due to sinus bradycardia, and advised against any increases in dosage. Lifestyle modifications, including low salt intake and physical activity, were recommended. I discussed the non-cardiac nature of the leg edema and advised follow-up with primary care if it progresses. I addressed questions about family medical history and emphasized monitoring for any new symptoms, such as dizziness. Patient Instructions: - Wear CPAP every night. - Follow low sodium diet. - Stay active indoors, aim for regular exercise. - Monitor leg swelling, consult primary doctor if it increases. - Do not increase clonidine dosage. - Limit caffeine to one cup daily. - Report any dizziness or new symptoms. - Follow up with scheduled tests and evaluations. Coding Level of Care Code Est Pt Level 4 (03145) Complex EM visit Add On G2211 Diagnoses Sinus bradycardia R00.1 Essential hypertension I10 CHAZ (obstructive sleep apnea) G47.33 Palpitation R00.2 Chest discomfort R07.89 Abnormal nuclear stress test R94.39 Time Spent (min) 30
== END 2025-03-08 14:31 | disposition home or self-care (01) ==
LOC: HO.HCS 13:33
PROVIDERS: PCP Internal Medicine; Visit Provider Nurse Practitioner Family
DX: R00.1 Bradycardia, unspecified (principal); I10 Essential (primary) hypertension; G47.33 Obstructive sleep apnea (adult) (pediatric); R00.2 Palpitations; R07.89 Other chest pain; R94.39 Abnormal result of other cardiovascular function study
CPT/HCPCS: 99214; G2211

== ENCOUNTER → 2025-03-08 13:32 | Outpatient (BNVA) | payer MEDICARE, SELFPAY | PROVIDERS: PCP Internal Medicine; Visit Provider Nurse Practitioner Family | DX: E66.01 Morbid (severe) obesity due to excess calories (principal); I10 Essential (primary) hypertension; G47.33 Obstructive sleep apnea (adult) (pediatric); R00.1 Bradycardia, unspecified; R00.2 Palpitations; R07.89 Other chest pain; R94.39 Abnormal result of other cardiovascular function study; Z68.42 Body mass index [BMI] 45.0-49.9, adult; Z99.89 Dependence on other enabling machines and devices | CPT/HCPCS: 99212 ==

== ENCOUNTER 2025-03-14 08:24 | Outpatient (REF) | payer MEDICARE, SELFPAY ==
[2025-03-14 13:13] LABS: MANUAL DIFF FLAG NO
[2025-03-14 13:21] LABS: Basophils Percent Auto 0.7 % (0-2); Eosinophils Absolute Auto 0.1 X10*3/uL (0.0-0.4); Eosinophils Percent Auto 1.8 % (0-4); Hemoglobin 14.9 g/dl (12.0-16.0); Imm Gran Abs Auto 0.01 X10*3/uL (0.00-0.03); Imm Gran Pct Auto 0.2 % (0.0-0.4); Lymphocytes Absolute Auto 3.1 X10*3/uL (1.2-4.9); Lymphocytes Percent Auto 54.4 % (20-40); Mean Corpuscular HGB Conc 31.7 g/dl (31.0-35.0); Mean Corpuscular Hemoglobin 29.7 pg (27.0-33.0); Mean Corpuscular Volume 93.8 fL (80.0-98.0); Mean Platelet Volume 10.3 fL (9.4-12.3); Monocytes Absolute Auto 0.6 X10*3/uL (0.1-1.2); Monocytes Percent Auto 11.4 % (2-11); Neutrophils Absolute Auto 1.8 x10*3/uL (2.0-8.3); Neutrophils Percent Auto 31.5 % (45-73); Platelet Count 293 X10*3/uL (160-400); Red Blood Count 5.01 X10*6/uL (4.20-5.50); White Blood Count 5.6 X10*3/uL (4.8-10.8)
[2025-03-14 15:03] LABS: Alanine Aminotransferase 24 U/L (0-31); Anion Gap 10 (12-20); Aspartate Amino Transferase 24 U/L (5-31); Blood Urea Nitrogen 15 mg/dL (9-16); Calcium 9.7 mg/dL (8.4-10.2); Carbon Dioxide 26 mmol/L (22-29); Chloride 108 mmol/L (96-108); Cholesterol 199 mg/dL (<200); Estimated Glomerular Filt Rate > 60; Glucose Fasting 100 mg/dL (60-99); HDL Cholesterol 54 mg/dL (>40); LDL Cholesterol Calculated 119 mg/dL (<100); Potassium 4.4 mmol/L (3.3-5.1); Sodium 140 mmol/L (135-145); Triglycerides 134 mg/dL (<150)
[2025-03-14 15:19] LABS: Vitamin D 25-OH Total 40.7 ng/mL (>30)
== END 2025-03-14 08:25 | disposition home or self-care (01) ==
LOC: HO.HMGCLDS 08:24
PROVIDERS: PCP Internal Medicine; Visit Provider Internal Medicine
DX: Z00.01 Encounter for general adult medical examination with abnormal findings (principal); Z23 Encounter for immunization; E66.01 Morbid (severe) obesity due to excess calories; Z68.41 Body mass index [BMI] 40.0-44.9, adult; I10 Essential (primary) hypertension; G47.33 Obstructive sleep apnea (adult) (pediatric); M79.89 Other specified soft tissue disorders; F33.42 Major depressive disorder, recurrent, in full remission; R00.1 Bradycardia, unspecified; G25.81 Restless legs syndrome; H18.603 Keratoconus, unspecified, bilateral; Z86.0101 Personal history of adenomatous and serrated colon polyps; Z99.89 Dependence on other enabling machines and devices; Z71.89 Other specified counseling
CPT/HCPCS: 36415; 80048; 80061; 82306; 84450; 84460; 85025; 90471; 90677; 96127; 99212

== ENCOUNTER 2025-03-14 08:24 | Outpatient (AMB) | payer MEDICARE, SELFPAY ==
[2025-03-14 09:20] VITALS: BP 140/80; PULSE 53; RESP 20; TEMP 36.7; O2SAT 95; BMI 47.0
--- NOTE | 2025-03-14 09:20 | A.OFFPC_ITS ---
Vital Signs 03/14/25 09:20 Height 5 ft 1 in Weight 249 lb BMI 47.0 BP 140/80 H Blood Pressure Location Rt brachial Position Sitting Respiration 20 Pulse 53 Pulse Source Pulse Oximeter Temp 98.1 F Temp Source Oral Pulse Oximetry (%) 95 Oxygen Delivery Method Room Air Intake Visit Reasons: PE Intake Note: Pt is here today for her PE: Last mammogram 02/27/25, colonoscopy 09/16/21, papsmear 12/17/17 Allergies latex [LATEX] Allergy (Mild, Verified 03/14/25 09:21) RASH Medication List - Last Reconciled 03/14/25 by Elin Nicolas MD bupropion HCl XL 300 mg PO DAILY clonidine HCl 0.1 mg PO BEDTIME escitalopram oxalate 20 mg PO DAILY prednisolone acetate 1% 1 drp ophthalmic-Right QID ropinirole 1 mg (2 x 0.5 mg) PO BID 90 days Tobacco use date assessed: 03/14/25 Fall risk assessment: No Falls in past year Last assessed Fall Risk: 03/14/25 Dental Screening Dental Screen Date: 03/14/25 Did you have a dental visit in the last 12 months?: No Did you have a dental problem in the last 6 months where you did not have access to dental care?: No Was dental information given to patient?: Patient has dentist [facility] Medical History (Updated 03/14/25 @ 10:13 by Elin Nicolas MD) History of adenomatous polyp of colon Cornea transplant recipient Carpal tunnel syndrome on both sides Restless legs syndrome CHAZ (obstructive sleep apnea) Sinus bradycardia Intermittent lightheadedness Vitamin D deficiency Essential hypertension Hypertrophic toenail Lactose intolerance Seasonal allergies Postmenopausal bleeding Tear of lateral meniscus of right knee Patellofemoral syndrome of right knee Morbid obesity IBS (irritable bowel syndrome) Bile salt-induced diarrhea Restless leg syndrome Depression Keratoconus of both eyes Surgical History History of tubal ligation History of laparoscopic cholecystectomy Family History Father Hodgkins disease Son No problems noted. Son No problems noted. Daughter No problems noted. Other Mental health disorder Social History Housing: House Alcohol intake: current Alcohol intake frequency: holidays/special occasions only Patient Tobacco Use Status: Never used Tobacco e-Cigarette/Vaping Use: Never Used Current occupational status: retired Cognitive needs: No Hearing needs: No Vision needs: No Questionnaire PHQ-9 Over the last 2 weeks, how often have you been bothered by any of the following problems? 1. Little interest or pleasure in doing things: several days 2. Feeling down, depressed, or hopeless: several days 3. Trouble falling or staying asleep, or sleeping too much: more than half the days 4. Feeling tired or having little energy: several days 5. Poor appetite or overeating: several days 6. Feeling bad about yourself - or that you are a failure or have let yourself or your family down: not at all 7. Trouble concentrating on things, such as reading the newspaper or watching television: not at all 8. Moving or speaking so slowly that other people could have noticed. Or the opposite - being so fidgety or restless that you have been moving around a lot more than usual: not at all 9. Thoughts that you would be better off or of hurting yourself in some way: not at all Total score: 6 Depression Screening Interpretation: Positive (Followed by Dr. Silvia Macias) Depression Screening Follow-up: Existing condition, In treatment and Community Mental Health Worker F/U Depression Screening Done: Yes 71528 - PHQ-9 Billing: Yes Source: Developed by Drs. Donald Leahy, Betsey José, Elvis Walker and colleagues, with an educational emily from [employer]. Thrive Questionnaire Date Thrive assessed: 03/14/25 I am a: Patient What is your living situation today?: I have a steady place to live Within the past 12 months, did the food you bought not last and you didn't have the money to get more?: Never true Within the past 12 months, did you worry whether your food would run out before you got money to buy more?: Never true Do you have trouble paying for medicines?: No Do you have trouble getting transportation to medical appointments?: No Do you have trouble paying your heating and electricity bill?: No Do you have trouble taking care of your child, family member or friend?: No Do you have trouble with day-to-day activities such as bathing, preparing meals, shopping, managing finances, etc.?: No Are you currently unemployed and looking for a job?: No Are you interested in more education?: No Please select the resources that you would like help with: None Currently or been in a relationship where the following occur: No concerns reported THRIVE Score: 0 AUDIT C Alcohol Use Questionnaire (AUDIT-C) 1. How often do you have a drink containing alcohol?: 2-4 times a month 2. How many drinks containing alcohol do you have on a typical day when you are drinking?: 1 or 2 3. How often do you have six or more drinks on one occasion?: Never Total Score: 2 TIA-7 AMB Questionnaire TIA-7 Date TIA - 7 assessed: 03/14/25 Feeling nervous, anxious, or on edge: 2 = More than half the days Not being able to stop or control worryin = Several days Worrying too much about different things: 1 = Several days Trouble relaxin = Several days Being so restless that it is hard to sit still: 0 = Not at all Becoming easily annoyed or irritable: 1 = Several days Feeling afraid as if something awful might happen: 1 = Several days Total TIA-7 score (0-4 normal; 5-9 mild; 10-14 moderate; 15-21 severe): 7 Source: Developed by Drs. Donald Leahy, Betsey José, Elvis Walker and colleagues, with an educational emily from [employer]. TIA-7 Assessment Billing TIA-7 Assessment Tool: TIA-7 Assessment 72873 Review of Systems Const All systems reviewed & are unremarkable except as noted in HPI and below ENT Denies dizziness Card Denies chest pain, Denies chest pain at rest, Denies chest pain with activity, Denies rapid heart rate, Denies pedal edema, Denies edema, Denies leg edema, Denies lightheadedness, Denies palpitations, Denies dyspnea, Reports dyspnea on exertion and Denies orthopnea Resp Denies cough, Denies dyspnea and Reports dyspnea on exertion GI Denies hematochezia and Denies change in stool character Musc Denies abnormal gait, Denies limited range of motion, Denies muscle cramps, Denies muscle weakness, Denies numbness, Denies radiating pain into limb, Denies stiffness and Denies tingling Neuro Denies abnormal gait, Denies dizziness, Denies numbness, Denies Sensory deficit (Neuro) and Denies tingling Endo Denies palpitations Physical exam (Primary Care) Vital Signs: Last Vital Signs Temp 98.1 F 03/14/25 09:20 Pulse 53 03/14/25 09:20 Resp 20 03/14/25 09:20 BP 140/80 H 03/14/25 09:20 Pulse Ox 95 03/14/25 09:20 Oxygen Delivery Method Room Air 03/14/25 09:20 BMI result Body Mass Index 47.0 Tobacco/Smoking Status: Tobacco use Status Tobacco use date assessed 03/14/25 03/14/25 09:23 Patient Tobacco Use Status Never used Tobacco 03/14/25 09:20 e-Cigarette/Vaping Use Never Used 03/14/25 09:20 PHQ-9: PHQ-9 Score PHQ-9: Total score 6 03/14/25 09:27 Depression Screening Interpretation: Positive (Followed by Dr. Silvia Macias) Depression Screening Follow-up: Existing condition, In treatment and Community Mental Health Worker F/U Thrive Assessment: Date of Thrive Assessment Date Thrive assessed 03/14/25 03/14/25 09:27 Currently or been in a relationship where the following occur: No concerns reported Advance Care Planning discussion: Completed/Scanned Date of discussion: 03/14/25 Who was present: Patient Forms completed: Health Care Proxy and MOLST Time spent: 16-45 minutes Actual minutes spent: 10 Const General: comfortable, no acute distress and alert Nutritional Appearance: obese morbidly obese Orientation/consciousness: patient oriented x3 HENMT Ears: hearing grossly normal bilaterally and TM's normal bilaterally General nose exam: Normal external nose present and No nasal discharge present Face and sinus: Yes face symmetric Mouth: Normal oral and palatal mucosa present, oropharynx normal and moist mucous membranes Eyes General: appearance normal, both eyes and all related structures Neck Neck: Yes full ROM, Yes no lymphadenopathy and Yes supple Chest Breast/axilla palpation: normal palpation of the breasts Resp Auscultation: clear to auscultation bilaterally Cardio Other: S1-S2 present regular rate and rhythm GI Other: Obese, soft, nontender, no mass palpated General: Yes no CVA tenderness Back/Spine/Pelvis Back: no CVA tenderness and No back tenderness Skin General skin exam: no rashes or lesions noted Neuro General: patient oriented x3, gait normal, tone normal, moves all extremities, Normal light touch and pain sensation and no focal motor deficits Sensory Exam: No Sensory deficit (Neuro) Extrem General: Yes full ROM, Yes no joint enlargement, Yes no clubbing, cyanosis or edema and Yes normal gait Psych Appearance: grossly normal and well kempt Mental Status: mental status grossly normal Speech and movement: Normal speech and movement present Affect: normal affect Immunizations pneumoc 20-nasreen conj-dip cr(PF) 0.5 mL IM syringe Performing Provider: Elin Nicolas MD Performing Location: [facility] Administered by: Drea Chacko CMA on 03/14/25 10:22 Dose Route Admin Location Dispensed Lot Number Expiration Date NDC Substation Inspector 0.5 mL IM Left Deltoid 0.5 mL [id number] 01/22/26 5631-7200-00 [employer] VIS Given Date VIS Provided VIS Publication Date 03/14/25 Single Vaccine 21 Eligibility Eligibility Date Funding Source Not [facility] Eligible 03/14/25 Private Coding Level of Care Code Est Pt Prev Care >65y(82512) Diagnoses Swelling of left lower extremity M79.89 Recurrent major depressive disorder, in full remission F33.42 Active/Remission status: in full remission Depression Type: major depressive disorder Major depression recurrence: recurrent Sinus bradycardia R00.1 CHAZ (obstructive sleep apnea) G47.33 Morbid obesity with BMI of 40.0-44.9, adult E66.01; Z68.41 Restless legs syndrome G25.81 Abnormal nuclear stress test R94.39 Essential hypertension I10 Keratoconus of both eyes H18.603 History of adenomatous polyp of colon Z86.0101 Advanced directives, counseling/discussion Z71.89 Annual visit for general adult medical examination with abnormal findings Z00.01 Additional Codes PHQ-9 - 58108 - PHQ-9 Billing: Yes ([id number]) TIA-7 Assessment Billing - TIA-7 Assessment Tool: TIA-7 Assessment 97157 ([id number]) Vital Signs *Quality* - Advance Care Planning discussion: Completed/Scanned ([id number]) Vital Signs *Quality* - Time spent: 16-45 minutes ([id number]) Assessment & Plan Assessment & Plan (1) Swelling of left lower extremity: Code(s): M79.89 - Other specified soft tissue disorders Plan: Venous Doppler ultrasound ordered to rule out DVT (2) Depression: Comment: sees Dr Silvia Macias , depression under control with present treatment Code(s): F32.9 - Major depressive disorder, single episode, unspecified Category: Medical Qualifiers: Active/Remission status: in full remission Depression Type: major depressive disorder Major depression recurrence: recurrent Qualified Code(s): F33.42 - Major depressive disorder, recurrent, in full remission (3) Sinus bradycardia: Code(s): R00.1 - Bradycardia, unspecified Category: Medical (4) CHAZ (obstructive sleep apnea): Comment: HER OBSTRUCTIVE SLEEP APNEA IS WELL TREATED WITH THE CPAP . SHE USES IT VERY REGULARLY. COMPLIANCE IS GOOD Code(s): G47.33 - Obstructive sleep apnea (adult) (pediatric) Category: Medical (5) Morbid obesity with BMI of 40.0-44.9, adult: Comment: HE HAS LONGSTANDING MORBID OBESITY, IN THE LAST 6 MONTHS HAS GAINED SOME WEIGHT, THIS SHE BLAMES IT ON HER STRESS SITUATION IN THE HOUSE. Code(s): E66.01 - Morbid (severe) obesity due to excess calories; Z68.41 - Body mass index [BMI] 40.0-44.9, adult Category: Medical (6) Restless legs syndrome: Code(s): G25.81 - Restless legs syndrome Category: Medical (7) Abnormal nuclear stress test: Code(s): R94.39 - Abnormal result of other cardiovascular function study Category: Medical (8) Essential hypertension: Code(s): I10 - Essential (primary) hypertension Category: Medical (9) Keratoconus of both eyes: Comment: ff'd by Dr Gomez Code(s): H18.603 - Keratoconus, unspecified, bilateral Category: Medical (10) History of adenomatous polyp of colon: Code(s): Z86.0101 - Personal history of adenomatous and serrated colon polyps Category: Medical (11) Advanced directives, counseling/discussion: Code(s): Z71.89 - Other specified counseling Plan: Initiated the conversation about Advanced Directives. Advanced Directives help patients prepare for current and future decisions about their medical treatment and place of care. Discussed with patient that it is a process where a patients current condition and prognosis are reviewed, their wishes for information regarding their illness are elicited, and likely medical dilemmas are presented and options discussed. Healthcare proxy form and MOLST form completed today. The form can be amended as needed, reviewed yearly and make changes as needed (12) Annual visit for general adult medical examination with abnormal findings: Code(s): Z00.01 - Encounter for general adult medical examination with abnormal findings Plan: Will check appropriate labs. Recommended dental visit every 6 months and regul ar eye exams, sees Dr. Gomez her keratoconus:. Take adequate calcium in diet and vitamin-D 3 at 2000 IU per cap once a day, in addition to weight-bearing exercises to help maintain good muscle tone and weight control will order bone density scan to be done together with her screening mammogram next year. Instructed to do self-breast exam, and continue yearly mammogram, currently up-to-date. Up-to-date with her COVID vaccination and flu shot, up-to-date with Tdap, Prevnar 20 given today, advised to get vaccinated against shingles which she can get at the pharmacy. Colonoscopy screening due again next year Orders: Orders US venous duplex LE LT Today M79.89 - Other specified soft tissue disorders Pneumococcal 20 Immunization Today Z23 - Encounter for immunization Aspartate Amino Transferase Today E66.01 - Morbid (severe) obesity due to excess calories, F33.42 - Major depressive disorder, recurrent, in full remission, G25.81 - Restless legs syndrome, G47.33 - Obstructive sleep apnea (adult) (pediatric), R00.1 - Bradycardia, unspecified, Z68.41 - Body mass index [BMI] 40.0-44.9, adult Alanine Aminotransferase Today E66.01 - Morbid (severe) obesity due to excess calories, F33.42 - Major depressive disorder, recurrent, in full remission, G25.81 - Restless legs syndrome, G47.33 - Obstructive sleep apnea (adult) (pediatric), R00.1 - Bradycardia, unspecified, Z68.41 - Body mass index [BMI] 4 0.0-44.9, adult Lipid Panel Today E66.01 - Morbid (severe) obesity due to excess calories, F33.42 - Major depressive disorder, recurrent, in full remission, G25.81 - Restless legs syndrome, G47.33 - Obstructive sleep apnea (adult) (pediatric), R00.1 - Bradycardia, unspecified, Z68.41 - Body mass index [BMI] 40.0-44.9, adult Vitamin D 25-OH Total Today E66.01 - Morbid (severe) obesity due to excess calories, F33.42 - Major depressive disorder, recurrent, in full remission, G25.81 - Restless legs syndrome, G47.33 - Obstructive sleep apnea (adult) (pediatric), R00.1 - Bradycardia, unspecified, Z68.41 - Body mass index [BMI] 40.0-44.9, adult Complete Blood Count Auto Diff Today E66.01 - Morbid (severe) obesity due to excess calories, F33.42 - Major depressive disorder, recurrent, in full remission, G25.81 - Restless legs syndrome, G47.33 - Obstructive sleep apnea (adult) (pediatric), R00.1 - Bradycardia, unspecified, Z68.41 - Body mass index [BMI] 40.0-44.9, adult Basic Metabolic Panel Fasting Today E66.01 - Morbid (severe) obesity due to excess calories, F33.42 - Major depressive disorder, recurrent, in full remission, G25.81 - Restless legs syndrome, G47.33 - Obstructive sleep apnea (adult) (pediatric), R00.1 - Bradycardia, unspecified, Z68.41 - Body mass index [BMI] 40.0-44.9, adult
== END 2025-03-14 10:26 | disposition home or self-care (01) ==
LOC: HO.HMCC 08:25
PROVIDERS: PCP Internal Medicine; Visit Provider Internal Medicine
DX: Z23 Encounter for immunization (principal)

== ENCOUNTER 2025-06-12 10:19 | Outpatient (AMB) | payer MEDICARE, SELFPAY ==
--- NOTE | 2025-06-12 10:31 | MHC.OFFVIS ---
Vital Signs 06/12/25 10:32 Height 5 ft 1 in Weight 255 lb 11.779 oz BMI 48.3 BP 112/72 Blood Pressure Location Lt brachial Position Sitting Pulse 53 Pulse Source Pulse Oximeter Pulse Oximetry (%) 98 Oxygen Delivery Method Room Air Intake Visit Reasons: Obstructive sleep apnea Intake Note: pt is here for follow up and states she is feeling okay today, she was on vacation, and had a problem with cap, and fine now [employer] Shop Stenographer Required: No Allergies latex (LATEX) Allergy (Mild, Verified 06/12/25 10:53) RASH Medication List - Last Reconciled 06/12/25 by Faby Oakes MD bupropion HCl XL 300 mg PO DAILY clonidine HCl 0.1 mg PO BEDTIME escitalopram oxalate 20 mg PO DAILY prednisolone acetate 1% 1 drp ophthalmic-Right QID ropinirole 1 mg (2 x 0.5 mg) PO BID 90 days Do you need a note to return to daycare/school/sports/work: No HPI HPI Obstructive sleep apnea: Details: This 65 years old female is here for follow-up for her obstructive sleep apnea. She remains morbidly obese, is known case of obstructive sleep apnea, which is being treated with use of CPAP. She uses CPAP regularly, last month there was about 1 weeks break because she had left her supplies in [place]. She keeps the CPAP on for at least 6 hours every night and then removes even though she sleeps a few more hours. She is known to have restless legs syndrome which is controlled with use of ropinirole. I explained to her that part of the reason for restless legs syndrome may be PLMs caused by use of escitalopram. ( as a side effect of SSRI agents) She states that currently her depression is less and under control. But she is still not motivated to get up and walk around. Even though she tries to watch her diet but still has put on some weight. [facility] Medical History History of adenomatous polyp of colon Cornea transplant recipient Carpal tunnel syndrome on both sides Restless legs syndrome CHAZ (obstructive sleep apnea) Sinus bradycardia Intermittent lightheadedness Vitamin D deficiency Essential hypertension Hypertrophic toenail Lactose intolerance Seasonal allergies Postmenopausal bleeding Tear of lateral meniscus of right knee Patellofemoral syndrome of right knee Morbid obesity IBS (irritable bowel syndrome) Bile salt-induced diarrhea Restless leg syndrome Depression Keratoconus of both eyes Surgical History History of tubal ligation History of laparoscopic cholecystectomy Family History Father Hodgkins disease Son No problems noted. Son No problems noted. Daughter No problems noted. Other Mental health disorder Social History Housing: House Alcohol intake: current Alcohol intake frequency: holidays/special occasions only Patient Tobacco Use Status: Never used Tobacco e-Cigarette/Vaping Use: Never Used Current occupational status: retired Cognitive needs: No Hearing needs: No Vision needs: No Review of Systems Const All systems reviewed & are unremarkable except as noted in HPI and below Reports fatigue Eyes Reports no additional complaints ENT Reports no additional complaints, Denies vertigo and Denies dizziness Card Denies chest pain, Denies irregular heart rhythm, Denies leg edema and Reports slow heart rate Resp Reports no additional complaints GI Reports GI cramping and Reports dyspepsia Reports no additional complaints Musc Reports back pain and Reports arthralgias (KNEES) Skin/Breast Reports system reviewed and no additional complaints, except as documented Neuro Denies vertigo, Denies dizziness, Denies focal weakness and Reports restless legs Psych Reports no additional complaints Endo Reports no additional complaints and Reports fatigue Physical Exam THE PATIENT IS GROSSLY OBESE, WITH A ROUND FACE. Const General: comfortable, no acute distress, alert and awake Orientation/consciousness: patient oriented x3 HEENT Head: Yes normal to inspection General nose exam: No nasal polyps present and No nasal discharge present Face and sinus: Yes sinuses nontender Mouth: oropharynx normal Throat: No posterior oropharynx normal (NARROW AND CROWDED, MALLAMPATI CLASS 3) Eyes General: appearance normal, both eyes and all related structures Neck Neck: Yes normal visual inspection, Yes no lymphadenopathy, Yes trachea midline, Yes no JVD and Yes other (NECK CIRCUMFERENCE 14-1/2 INCHES) Thyroid: Thyroid normal Chest Chest palpation & inspection: normal inspection of the chest, normal palpation of entire chest wall and no tenderness Resp Other: PERCUSSION NOTE RESONANT, BREATH SOUNDS ARE DIMINISHED OVER THE LOWER LOBES, BUT EQUAL ON BOTH SIDES NO WHEEZES RHONCHI OR CREPITATIONS ARE HEARD. Cardio Palpation: normal PMI Rate: regular rate Rhythm: regular rhythm Heart sounds: no gallops and no murmurs GI Palpation (GI): Soft to palpation, nontender, No hepatosplenomegaly present and no masses Auscultation: normal bowel sounds Back/Spine/Pelvis Thoracic/Lumbar Spine: thoracic and lumbar spine normal to inspection and thoraco-lumbar ROM limited Skin General skin exam: no rashes or lesions noted Neuro General: patient oriented x3 and no focal motor deficits Cranial nerves: Yes CN's II-XII intact bilaterally Extrem Other: RIGHT SHOULDER AND RIGHT KNEE ARE PAINFUL General: Yes normal to inspection, Yes no clubbing, cyanosis or edema (LOWER EXTREMITIES ARE VERY BULKY, BUT WITHOUT PITTING EDEMA.), Yes no calf tenderness and No edema (Legs are very bulky but no pitting edema noted) Psych Appearance: grossly normal and well kempt Speech and movement: Normal speech and movement present Results Reviewed Results Reviewed: Compliance report for the last 30 nights is reviewed. She has used 24-30 nights, 80%. She went for 1 week without using because her supplies were left in [place]. Assessment & Plan Assessment & Plan (1) Morbid obesity with BMI of 40.0-44.9, adult: Comment: HE HAS LONGSTANDING MORBID OBESITY, IN THE LAST 6 MONTHS HAS GAINED SOME WEIGHT, SHE CLAIMS THAT SHE HAS BEEN UNDER LOT OF STRESS AND SOMEWHAT MORE DEPRESSED, BUT NOW FEELS BETTER AND WILL TRY TO LOSE WEIGHT. Code(s): E66.01 - Morbid (severe) obesity due to excess calories; Z68.41 - Body mass index [BMI] 40.0-44.9, adult Category: Medical Plan: I DISCUSSED WITH HER ABOUT LOSING WEIGHT. SHE DOES NOT WANT TO GO FOR ANY INJECTIONS. SHE WANTS TO LOSE WEIGHT WITH NATURAL MEANS. ADVISED TO CUT. DOWN THE PORTIONS OF THE MEALS ADVISED TO START WALKING AT LEAST FOR HALF IN [place] AT A TIME AND MAY BE 2 OR 3 TIMES A DAY. (2) CHAZ (obstructive sleep apnea): Comment: HER OBSTRUCTIVE SLEEP APNEA IS WELL TREATED WITH THE CPAP . SHE USES IT VERY REGULARLY. COMPLIANCE IS GOOD Code(s): G47.33 - Obstructive sleep apnea (adult) (pediatric) Category: Medical Plan: COMMENDED FOR GOOD COMPLIANCE AND ADVISED TO CONTINUE USING THE CPAP EVERY NIGHT AT LEAST FOR 6 HOURS PER NIGHT. Coding Level of Care Code Est Pt Level 3 (09281) Diagnoses Morbid obesity with BMI of 40.0-44.9, adult E66.01; Z68.41 CHAZ (obstructive sleep apnea) G47.33
[2025-06-12 10:32] VITALS: BP 112/72; PULSE 53; O2SAT 98; BMI 48.3
== END 2025-06-12 10:53 | disposition home or self-care (01) ==
PROVIDERS: PCP Internal Medicine; Visit Provider Internal Medicine
DX: E66.01 Morbid (severe) obesity due to excess calories (principal); Z68.41 Body mass index [BMI] 40.0-44.9, adult; G47.33 Obstructive sleep apnea (adult) (pediatric)
CPT/HCPCS: 99213

== ENCOUNTER → 2025-06-12 10:19 | Outpatient (BNVA) | payer MEDICARE, SELFPAY | PROVIDERS: PCP Internal Medicine; Visit Provider Internal Medicine | DX: G47.33 Obstructive sleep apnea (adult) (pediatric) (principal); E66.01 Morbid (severe) obesity due to excess calories; Z68.42 Body mass index [BMI] 45.0-49.9, adult | CPT/HCPCS: 99212 ==

== ENCOUNTER 2025-09-13 13:47 | Outpatient (AMB) | payer MEDICARE, SELFPAY ==
[2025-09-13 13:59] VITALS: BP 150/72; PULSE 52; BMI 48.8
--- NOTE | 2025-09-13 13:59 | A.OFFVIS_ITS ---
Vital Signs 09/13/25 13:59 Height 5 ft 1 in Weight 258 lb 6.108 oz BMI 48.8 BP 150/72 H Blood Pressure Location Lt brachial Position Sitting Pulse 52 Pulse Source Monitor Intake Visit Reasons: 6m follow up Global Marketing Specialist Required: No Allergies latex (LATEX) Allergy (Mild, Verified 09/13/25 14:00) RASH Medication List - Last Reconciled 09/13/25 by Steph Crenshaw, MEG-C bupropion HCl XL 300 mg PO DAILY clonidine HCl 0.1 mg PO BEDTIME escitalopram oxalate 20 mg PO DAILY prednisolone acetate 1% 1 drp ophthalmic-Right QID ropinirole 1 mg (2 x 0.5 mg) PO BID 90 days HPI HPI 6m follow up: Details: Linda is a 65-year-old female with past medical history of morbid obesity, hypertension, obstructive sleep apnea with CPAP use, sinus bradycardia who recently had a CTA of the coronary arteries and now presents for follow-up. Today she reports doing well overall since her last visit in February. Her primary concern is that she has not been able to lose weight. She is not interested in weight loss injections due to the potential for GI side effects or bariatric surgery since her [id number] from it years ago. She has not had any concerning heart palpitations, lightheadedness, presyncope, syncope, falls. No chest discomfort at rest or during activity. She denies shortness of breath, PND, orthopnea or edema. She has been compliant with her CPAP mask. Has been on clonidine for a long time, no recent changes to dose. Takes meds as directed. [facility] Medical History History of adenomatous polyp of colon Cornea transplant recipient Carpal tunnel syndrome on both sides Restless legs syndrome CHAZ (obstructive sleep apnea) Sinus bradycardia Intermittent lightheadedness Vitamin D deficiency Essential hypertension Hypertrophic toenail Lactose intolerance Seasonal allergies Postmenopausal bleeding Tear of lateral meniscus of right knee Patellofemoral syndrome of right knee Morbid obesity IBS (irritable bowel syndrome) Bile salt-induced diarrhea Restless leg syndrome Depression Keratoconus of both eyes Surgical History History of tubal ligation History of laparoscopic cholecystectomy Family History Father Hodgkins disease Son No problems noted. Son No problems noted. Daughter No problems noted. Other Mental health disorder Social History Housing: House Alcohol intake: current Alcohol intake frequency: holidays/special occasions only Patient Tobacco Use Status: Never used Tobacco e-Cigarette/Vaping Use: Never Used Current occupational status: retired Cognitive needs: No Hearing needs: No Vision needs: No Review of Systems Const All systems reviewed & are unremarkable except as noted in HPI and below ENT Denies dizziness Card Denies chest pain, Denies chest pain at rest, Denies chest pain with activity, Denies rapid heart rate, Denies pedal edema, Denies edema, Denies leg edema, Denies lightheadedness, Denies palpitations, Denies dyspnea, Denies dyspnea on exertion and Denies orthopnea Resp Denies cough, Denies dyspnea and Denies dyspnea on exertion GI Denies hematochezia and Denies change in stool character Musc Denies abnormal gait, Denies limited range of motion, Denies muscle cramps, Denies muscle weakness, Denies numbness, Denies radiating pain into limb, Denies stiffness and Denies tingling Neuro Denies abnormal gait, Denies dizziness, Denies numbness and Denies tingling Endo Denies palpitations Physical Exam Vital Signs: BMI result Body Mass Index 48.8 Const General: cooperative, healthy appearing, comfortable and no acute distress Orientation/consciousness: patient oriented x3 Neck Neck: Yes normal visual inspection Resp Effort & Inspection: normal respiratory effort Auscultation: clear to auscultation bilaterally, no rales, no rhonchi and no wheezes Cardio Rate: bradycardic Rhythm: regular rhythm Heart sounds: S1 normal heart sound present, S2 normal heart sound present, no gallops, no murmurs and no rubs Neuro General: patient oriented x3 Extrem General: Yes normal to inspection, No no pedal edema and No calf tenderness Psych Appearance: grossly normal Mental Status: mental status grossly normal Speech and movement: Normal speech and movement present Office Procedures EKG Details: Today, read by me, sinus bradycardia, rate 52, QTC 377 milliseconds [id number], Complete Assessment & Plan Assessment & Plan (1) Sinus bradycardia: Code(s): R00.1 - Bradycardia, unspecified Category: Medical Plan: History of sinus bradycardia, asymptomatic. Holter monitor done on 08/17/2023 for 3 days shows sinus rhythm with average heart rate 64, 42% of the time heart rate less than 60. Exercise stress test done 09/25/2024 did show normal chronotropic competence to activity reaching 100% MPHR. EKG today shows sinus bradycardia, heart rate 52. Continue to avoid rate slowing medications. She is on clonidine low-dose which has been long-term with no recent med adjustments. No indication for pacemaker placement. Cardiology office visit in 6 months, sooner if needed (2) Abnormal nuclear stress test: Code(s): R94.39 - Abnormal result of other cardiovascular function study Category: Medical Plan: Prior Reports of heartburn type sensation that occurred at rest and with ac tivity. Exercise stress test was inconclusive due to poor exercise capacity. She then underwent a nuclear stress test 10/31/2024 which showed no evidence of ischemia, fixed mid anterior septal defect, possible nontransmural infarct versus artifact. CTA of the coronary arteries done on 05/16/2025 showing D1 25- 50% stenosis versus artifact, mid LAD less than 25% stenosis. Test results reviewed with her. No anginal symptoms. Will treat with risk factor modification. Will start aspirin 81 mg daily. Labs 03/14/2025 showed LDL 119. Will start atorvastatin 20 mg daily with fasting lipids and LFT in 2 months. Signs and symptoms of angina reviewed with her. (3) CAD (coronary artery disease): Code(s): I25.10 - Atherosclerotic heart disease of [place] coronary artery without angina pectoris Category: Medical Plan: as above (4) Essential hypertension: Code(s): I10 - Essential (primary) hypertension Category: Medical Plan: Blood pressure goal less than 130/80. Mild elevation today. Normal on prior OV our system. Reviewed low-salt diet, need for weight loss. (5) CHAZ (obstructive sleep apnea): Comment: HER OBSTRUCTIVE SLEEP APNEA IS WELL TREATED WITH THE CPAP . SHE USES IT VERY REGULARLY. COMPLIANCE IS GOOD Code(s): G47.33 - Obstructive sleep apnea (adult) (pediatric) Category: Medical Plan: She reports compliance with her CPAP mask. Plan I reviewed the results of a past cardiac CT angiogram with the patient for the first time. I explained that the scan showed mild plaque buildup with minimal narrowing (<25% in the LAD) and that this level of disease is not causing symptoms and does not require a stent. Based on these findings and a previous LDL of 119, I recommended initiating treatment to lower cholesterol and prevent plaque progression. I prescribed daily baby aspirin and low-dose atorvastatin. I advised a follow-up fasting lipid panel in approximately two months to check the medication's effectiveness. I also discussed the EKG finding of sinus bradycardia. I reassured the patient that since there are no symptoms like lightheadedness, it does not currently require a pacemaker. I provided return precautions, advising the patient to contact us if such symptoms develop for further evaluation. Finally, we addressed the patient's challenges with weight loss, acknowledging past frustrations and affirming the patient's concerns regarding certain medical and surgical interventions. I reinforced the benefits of continued lifestyle efforts for overall health. Orders: Orders Lipid Panel 2 Months I25.10 - Atherosclerotic heart disease of [place] coronary artery without angina pectoris Liver Panel 2 Months I25.10 - Atherosclerotic heart disease of [place] coronary artery without angina pectoris Medications: New atorvastatin (Lipitor) 20 mg PO BEDTIME 30 tabs 5RF aspirin 81 mg PO DAILY 90 tabs 3RF Patient Instructions: - Start taking one baby aspirin (81 mg) every day. To protect your stomach, choose an enteric-coated type or take it with food. - Begin taking the new prescription for atorvastatin, a medication to lower your cholesterol. I have sent this prescription to your pharmacy. - In about two months (around October), please go to the lab for a fasting cholesterol blood test. Do not eat or drink anything except water for 12 hours before the test. - Your heart rate is a bit slow, but this is not a concern right now. Please contact the office if you begin to feel lightheaded or feel like you might faint. - Continue with your efforts to lose weight through diet and exercise. This will help your knees, back, and breathing. - Remember to use your CPAP machine every night for your sleep apnea. Patient was informed and verbally consented to the use of an ambient scribe for clinic note documentation during this visit. Visit time spent on chart review, interview, assessment, orders, documentation. Coding Level of Care Code [facility] 7 day Disch Diagnoses Sinus bradycardia R00.1 Abnormal nuclear stress test R94.39 CAD (coronary artery disease) I25.10 Essential hypertension I10 CHAZ (obstructive sleep apnea) G47.33 CPT Codes EKG - CPT: 48186-[id number], Complete ([id number]) Time Spent (min) 28
== END 2025-09-13 14:29 | disposition home or self-care (01) ==
LOC: HO.HCS 13:48
PROVIDERS: PCP Internal Medicine; Visit Provider Nurse Practitioner Family
DX: R00.1 Bradycardia, unspecified (principal); R94.39 Abnormal result of other cardiovascular function study; I25.10 Atherosclerotic heart disease of native coronary artery without angina pectoris; I10 Essential (primary) hypertension; G47.33 Obstructive sleep apnea (adult) (pediatric)
CPT/HCPCS: 93010; 99214

== ENCOUNTER → 2025-09-13 13:47 | Outpatient (BNVA) | payer MEDICARE, SELFPAY | PROVIDERS: PCP Internal Medicine; Visit Provider Nurse Practitioner Family | DX: R00.1 Bradycardia, unspecified (principal); R94.39 Abnormal result of other cardiovascular function study; I25.10 Atherosclerotic heart disease of native coronary artery without angina pectoris; I10 Essential (primary) hypertension; G47.33 Obstructive sleep apnea (adult) (pediatric) | CPT/HCPCS: 93005; 99212 ==

== ENCOUNTER 2025-10-10 11:20 | Outpatient (AMB) | payer MEDICARE, SELFPAY ==
[2025-10-10 11:33] VITALS: BP 120/64; PULSE 60; O2SAT 98; BMI 48.9
--- NOTE | 2025-10-10 11:33 | A.OFFVIS_ITS ---
Vital Signs 10/10/25 11:33 Height 5 ft 1 in Weight 259 lb 0.69 oz BMI 48.9 BP 120/64 Blood Pressure Location Lt brachial Position Sitting Pulse 60 Pulse Source Pulse Oximeter Pulse Oximetry (%) 98 Oxygen Delivery Method Room Air Intake Visit Reasons: Obstructive sleep apnea Intake Note: pt is here for follow up and states cpap is going well. Chest Pain Coordinator Required: No Data Warehousing Specialist: Data Warehousing Specialist offered & declined Allergies latex (LATEX) Allergy (Mild, Verified 10/10/25 11:48) RASH Medication List - Last Reconciled 10/10/25 by Faby Oakes MD aspirin 81 mg PO DAILY atorvastatin (Lipitor) 20 mg PO BEDTIME bupropion HCl XL 300 mg PO DAILY clonidine HCl 0.1 mg PO BEDTIME escitalopram oxalate 20 mg PO DAILY prednisolone acetate 1% 1 drp ophthalmic-Right QID ropinirole 1 mg (2 x 0.5 mg) PO BID 90 days Do you need a note to return to daycare/school/sports/work: No HPI HPI Obstructive sleep apnea: Details: Linda is a case of morbid obesity and obstructive sleep apnea. She is here for 6 months follow-up. She is a very regular user of the CPAP and has good sleep. She has no issues with the mask or CPAP device. Has not been able to lose much weight. [facility] Medical History History of adenomatous polyp of colon Cornea transplant recipient Carpal tunnel syndrome on both sides Restless legs syndrome CHAZ (obstructive sleep apnea) Sinus bradycardia Intermittent lightheadedness Vitamin D deficiency Essential hypertension Hypertrophic toenail Lactose intolerance Seasonal allergies Postmenopausal bleeding Tear of lateral meniscus of right knee Patellofemoral syndrome of right knee Morbid obesity IBS (irritable bowel syndrome) Bile salt-induced diarrhea Restless leg syndrome Depression Keratoconus of both eyes Surgical History History of tubal ligation History of laparoscopic cholecystectomy Family History Father Hodgkins disease Son No problems noted. Son No problems noted. Daughter No problems noted. Other Mental health disorder Social History Housing: House Alcohol intake: current Alcohol intake frequency: holidays/special occasions only Patient Tobacco Use Status: Never used Tobacco e-Cigarette/Vaping Use: Never Used Current occupational status: retired Cognitive needs: No Hearing needs: No Vision needs: No Review of Systems Const All systems reviewed & are unremarkable except as noted in HPI and below Reports fatigue Eyes Reports no additional complaints ENT Reports no additional complaints, Denies vertigo and Denies dizziness Card Denies chest pain, Denies irregular heart rhythm, Denies leg edema and Reports slow heart rate Resp Reports no additional complaints GI Reports GI cramping and Reports dyspepsia Reports no additional complaints Musc Reports back pain and Reports arthralgias (KNEES) Skin/Breast Reports system reviewed and no additional complaints, except as documented Neuro Denies vertigo, Denies dizziness, Denies focal weakness and Reports restless legs Psych Reports no additional complaints Endo Reports no additional complaints and Reports fatigue Physical Exam Vital Signs: Last Vital Signs Pulse 60 10/10/25 11:33 BP 120/64 10/10/25 11:33 Pulse Ox 98 10/10/25 11:33 Oxygen Delivery Method Room Air 10/10/25 11:33 BMI result Body Mass Index 48.9 THE PATIENT IS GROSSLY OBESE, WITH A ROUND FACE. Const General: comfortable, no acute distress, alert and awake Orientation/consciousness: patient oriented x3 HEENT Head: Yes normal to inspection General nose exam: No nasal polyps present and No nasal discharge present Face and sinus: Yes sinuses nontender Mouth: oropharynx normal Throat: No posterior oropharynx normal (NARROW AND CROWDED, MALLAMPATI CLASS 3) Eyes General: appearance normal, both eyes and all related structures Neck Neck: Yes normal visual inspection, Yes no lymphadenopathy, Yes trachea midline, Yes no JVD and Yes other (NECK CIRCUMFERENCE 14-1/2 INCHES) Thyroid: Thyroid normal Chest Chest palpation & inspection: normal inspection of the chest, normal palpation of entire chest wall and no tenderness Resp Other: PERCUSSION NOTE RESONANT, BREATH SOUNDS ARE DIMINISHED OVER THE LOWER LOBES, BUT EQUAL ON BOTH SIDES NO WHEEZES RHONCHI OR CREPITATIONS ARE HEARD. Cardio Palpation: normal PMI Rate: regular rate Rhythm: regular rhythm Heart sounds: no gallops and no murmurs GI Palpation (GI): Soft to palpation, nontender, No hepatosplenomegaly present and no masses Auscultation: normal bowel sounds Back/Spine/Pelvis Thoracic/Lumbar Spine: thoracic and lumbar spine normal to inspection and thoraco-lumbar ROM limited Skin General skin exam: no rashes or lesions noted Neuro General: patient oriented x3 and no focal motor deficits Cranial nerves: Yes CN's II-XII intact bilaterally Extrem Other: RIGHT SHOULDER AND RIGHT KNEE ARE PAINFUL General: Yes normal to inspection, Yes no clubbing, cyanosis or edema (LOWER EXTREMITIES ARE VERY BULKY, BUT WITHOUT PITTING EDEMA.), Yes no calf tenderness and No edema (Legs are very bulky but no pitting edema noted) Psych Appearance: grossly normal and well kempt Speech and movement: Normal speech and movement present Results Reviewed Results Reviewed: Compliance report for the last 30 nights reviewed and she has used 100% of the nights. Average use per night for 6 hours 8 minutes. There is no significant. air leak Residual AHI 0.4 Assessment & Plan Assessment & Plan (1) Morbid obesity with BMI of 40.0-44.9, adult: Comment: HE HAS LONGSTANDING MORBID OBESITY, CURRENT BMI= 48.9 IT IS STAYING STABLE AND SHE HAS NOT BEEN ABLE TO LOSE MUCH WEIGHT. Code(s): E66.01 - Morbid (severe) obesity due to excess calories; Z68.41 - Body mass index [BMI] 40.0-44.9, adult Category: Medical Plan: DISCUSSED ABOUT THE WEIGHT AND SHE IS AWARE THAT SHE HAS TO CUT DOWN THE CALORIES INTAKE. SHE IS NOT ABLE TO DO MUCH EXERCISE. (2) Restless leg syndrome: Comment: RESTLESS LEG SYNDROME,( MOST LIKELY SECONDARY TO USE OF ESCITALOPRAM AN SSRI ) , SYMPTOMS CONTROLLED WITH USE OF ROPINIROLE 1 MG AT BEDTIME. Code(s): G25.81 - Restless legs syndrome Category: Medical Plan: CONTINUE ROPINIROLE 1 MG AT BEDTIME (3) CHAZ (obstructive sleep apnea): Comment: HER OBSTRUCTIVE SLEEP APNEA IS WELL TREATED WITH THE CPAP . SHE USES IT VERY REGULARLY. COMPLIANCE IS GOOD Code(s): G47.33 - Obstructive sleep apnea (adult) (pediatric) Category: Medical Plan: COMMENDED FOR GOOD COMPLIANCE AND ADVISED TO KEEP ON USING THE CPAP EVERY NIGHT Coding Level of Care Code Est Pt Level 3 (30872) Diagnoses Morbid obesity with BMI of 40.0-44.9, adult E66.01; Z68.41 Restless leg syndrome G25.81 CHAZ (obstructive sleep apnea) G47.33
== END 2025-10-10 11:49 | disposition home or self-care (01) ==
LOC: HO.HPS 11:21
PROVIDERS: PCP Internal Medicine; Visit Provider Internal Medicine
DX: E66.01 Morbid (severe) obesity due to excess calories (principal); Z68.41 Body mass index [BMI] 40.0-44.9, adult; G25.81 Restless legs syndrome; G47.33 Obstructive sleep apnea (adult) (pediatric)
CPT/HCPCS: 99213

== ENCOUNTER → 2025-10-10 11:20 | Outpatient (BNVA) | payer MEDICARE, SELFPAY | PROVIDERS: PCP Internal Medicine; Visit Provider Internal Medicine | DX: E66.01 Morbid (severe) obesity due to excess calories (principal); Z68.41 Body mass index [BMI] 40.0-44.9, adult; G25.81 Restless legs syndrome; G47.33 Obstructive sleep apnea (adult) (pediatric); Z99.89 Dependence on other enabling machines and devices | CPT/HCPCS: 99212 ==